=== PATIENT | female | born 1950 | race African-American/Black ===

== ENCOUNTER → 2017-01-01 | Outpatient (CLI) | payer BC ==
[~2017-01-01] MED LIST: CEFT250T OR; GLUC850T OR; INSULANT SC; No Historical Meds; actos OR
--- NOTE | 2017-01-01 09:09 | REPMRS ---
Patient History The patient states she had a clinical breast exam in Patient is postmenopausal. No known family history of cancer. Digital Woman Screen Mammo: January 01, 2017 - Exam #: [id number] Bilateral CC and MLO view(s) were taken. Technologist: Kami Simmons, Technologist Prior study comparison: December 27, 2015, digital woman screen mammo performed at [facility] to [facility]. January 02, 2015, digital woman screen mammo performed at [facility]. December 30, 2013, digital woman screen mammo performed at [facility]. FINDINGS: There are scattered fibroglandular densities. There is a moderate amount of residual fibroglandular tissue which is fairly symmetric. There is no interval development of dominant mass, architectural distortion, or clustered microcalcification typical of malignancy. There has been no change in the appearance of the mammogram from the prior studies. ASSESSMENT: BI-RADS/ACR category 1 mammogram. Negative. Recommendation Routine screening mammogram of both breasts in 1 year (for women over age 40). This mammogram was interpreted with the aid of an FDA-approved computer-aided dectection system. Electronically Signed By: Taiwo Mendoza MD 01/01/17 0908
== END ==
LOC: M WHC 07:35
PROVIDERS: ATTEND Nurse Practitioner Family
DX: Z12.31 Encounter for screening mammogram for malignant neoplasm of breast (principal)

== ENCOUNTER → 2017-01-13 | Outpatient (REF) | payer BC ==
[2017-01-13 12:12] LABS: BASO % 0.2 % (0.0-1.0); EOS # 0.2 K/mm3 (0.0-0.50); LARGE UNSTAINED CELL # 0.1 K/mm3 (0.0-0.4); LARGE UNSTAINED CELL % 2.3 % (0.0-4.0); LYMPH % 33.2 % (24.0-44.0); MEAN CORPUSCULAR HEMOGLOBIN 29.1 pg (27.0-33.0); MEAN CORPUSCULAR VOLUME 90.8 fl (80.0-96.0); MONO # 0.4 K/mm3 (0.0-0.8); MONO % 6.5 % (0.0-5.0); NEUTROPHILS % 54.9 % (36.0-66.0); PLATELET COUNT, AUTOMATED 174 k/mm3 (150-450); WHITE BLOOD COUNT 5.5 K/mm3 (4.0-10.0)
[2017-01-13 12:32] LABS: ALBUMIN 3.8 GM/DL (3.2-5.2); ALBUMIN/GLOBULIN RATIO 0.69 (1.00-1.93); ALKALINE PHOSPHATASE 147 U/L (45-117); ALT/SGPT 24 U/L (12-78); ANION GAP 11 MEQ/L (8-16); AST/SGOT 27 U/L (15-37); BILIRUBIN,TOTAL 0.3 MG/DL (0.2-1.0); BLOOD UREA NITROGEN 11 MG/DL (7-18); CARBON DIOXIDE LEVEL 25 MEQ/L (21-32); CHLORIDE LEVEL 103 MEQ/L (98-107); CHOLESTEROL LEVEL 128 MG/DL (<200); GLOMERULAR FILTRATION RATE > 60.0 (>45); GLUCOSE, FASTING 106 MG/DL (80-110); POTASSIUM SERUM 4.3 MEQ/L (3.5-5.1); SODIUM LEVEL 139 MEQ/L (136-145); TOTAL PROTEIN 9.3 GM/DL (6.4-8.2); TRIGLYCERIDES LEVEL 129 MG/DL (<150)
== END ==
LOC: M SFHCPLAZ 07:11
PROVIDERS: ATTEND Nurse Practitioner Family
DX: D50.9 Iron deficiency anemia, unspecified (principal); E11.9 Type 2 diabetes mellitus without complications

== ENCOUNTER → 2017-05-16 | Outpatient (REF) | payer BC, OTHER | LOC: M SFHCPLAZ 09:51 | PROVIDERS: ATTEND Nurse Practitioner Family | DX: Z11.59 Encounter for screening for other viral diseases (principal) ==

== ENCOUNTER → 2017-05-28 | Outpatient (CLI) | payer OTHER ==
[2017-05-28 14:07] LABS: BASO % 0.6 % (0.0-1.0); EOS # 0.1 K/mm3 (0.0-0.50); EOS % 3.4 % (0.0-3.0); LARGE UNSTAINED CELL # 0.1 K/mm3 (0.0-0.4); LARGE UNSTAINED CELL % 2.9 % (0.0-4.0); LYMPH # 1.7 K/mm3 (1.5-4.5); MEAN CORPUSCULAR HEMOGLOBIN 28.9 pg (27.0-33.0); MEAN CORPUSCULAR HGB CONC 32.2 g/dl (32.0-36.5); MEAN CORPUSCULAR VOLUME 89.7 fl (80.0-96.0); MONO # 0.3 K/mm3 (0.0-0.8); MONO % 7.2 % (0.0-5.0); PLATELET COUNT, AUTOMATED 178 k/mm3 (150-450); RED CELL DISTRIBUTION WIDTH 14.8 % (11.5-14.5); WHITE BLOOD COUNT 4.3 K/mm3 (4.0-10.0)
[2017-05-28 14:30] LABS: ERYTHROCYTE SEDIMENTATION RATE 51 mm/hr (0-30)
== END ==
LOC: M LAB 13:17
PROVIDERS: ATTEND Orthopaedic Surgery Sports Medicine
DX: M25.569 Pain in unspecified knee (principal)

== ENCOUNTER → 2017-06-11 | Outpatient (REF) | payer OTHER ==
[2017-06-11 16:01] LABS: ALBUMIN 3.5 GM/DL (3.2-5.2); ALKALINE PHOSPHATASE 173 U/L (45-117); ALT/SGPT 35 U/L (12-78); ANION GAP 8 MEQ/L (8-16); AST/SGOT 36 U/L (15-37); BILIRUBIN,TOTAL 0.2 MG/DL (0.2-1.0); BLOOD UREA NITROGEN 17 MG/DL (7-18); CALCIUM LEVEL 9.3 MG/DL (8.8-10.2); CARBON DIOXIDE LEVEL 25 MEQ/L (21-32); CHLORIDE LEVEL 103 MEQ/L (98-107); CREATININE FOR GFR 0.77 MG/DL (0.55-1.02); GLOMERULAR FILTRATION RATE > 60.0 (>45); GLUCOSE, FASTING 229 MG/DL (80-110); POTASSIUM SERUM 3.8 MEQ/L (3.5-5.1); SODIUM LEVEL 136 MEQ/L (136-145); TOTAL PROTEIN 8.5 GM/DL (6.4-8.2)
[2017-06-14 08:07] LABS: IgG P18 AB Absent (.); IgG P23 AB Absent (.); IgG P28 AB Absent (.); IgG P30 AB Absent (.); IgG P41 AB Absent (.); IgG P45 AB Absent (.); IgG P58 AB Present (.); IgG P66 AB Absent (.); IgG P93 AB Present (.); IgM P39 AB Absent (.); IgM P41 AB Absent (.)
== END ==
LOC: M SFHCPLAZ 14:22
PROVIDERS: ATTEND Nurse Practitioner Family
DX: R70.0 Elevated erythrocyte sedimentation rate (principal); R79.82 Elevated C-reactive protein (CRP); M25.562 Pain in left knee; E11.9 Type 2 diabetes mellitus without complications; E78.2 Mixed hyperlipidemia; Z79.01 Long term (current) use of anticoagulants
CPT/HCPCS: 80053; 85730; 86038; 86431; 86617; G0463

== ENCOUNTER 2017-06-12 08:43 | Outpatient (RCR) | payer OTHER | END 2017-06-23 | disposition home or self-care (01) | LOC: M PT 08:43 | PROVIDERS: ATTEND Orthopaedic Surgery Sports Medicine | DX: Z51.89 Encounter for other specified aftercare (principal); M25.562 Pain in left knee | CPT/HCPCS: 97161; G8978; G8979 ==

== ENCOUNTER → 2017-07-24 | Outpatient (RCR) | payer OTHER | LOC: M PT 06-30 07:59 | PROVIDERS: ATTEND Orthopaedic Surgery Sports Medicine | DX: Z51.89 Encounter for other specified aftercare (principal); M25.562 Pain in left knee ==

== ENCOUNTER → 2017-07-30 | Outpatient (CLI) | payer OTHER ==
--- NOTE | 2017-07-31 05:47 | ECHO ---
DATE OF PROCEDURE: 07/30/2017 DATE OF : 1950 AGE: 67. REFERRING PROVIDER: Penny Hernandez PATIENT LOCATION: Outpatient REASON FOR THE ECHOCARDIOGRAM: Heart murmur. 2D MEASUREMENTS: IVS: 1.0 cm LV: 4.1 cm LVPW: 1.0 cm LA: 3.2 cm Aorta: 3.0 cm IVC: 1.7 cm DOPPLER MEASUREMENTS: Peak velocity across the aortic valve: 1.3 m/s Peak velocity across the LVOT: 1.3 m/s Mitral E: 0.88 Mitral A: 0.94 Ratio 0.9 2D COMMENTS: 1. Normal left ventricular size, wall thickness and a normal global left ventricular systolic function. Left ventricular systolic ejection fraction is estimated at 65-70%. 2. Normal left atrium. Normal right atrium. 3. The atrial septum appeared to be normal without evidence of defect or shunt. 4. Normal aortic root. 5. No pericardial effusion seen. 6. Mildly calcified aortic valve with normal leaflet excursion. Mildly calcified mitral annulus with normal mitral valve leaflet motion. Normal tricuspid valve and pulmonic valve. 7. The inferior vena cava was normal in size, central venous pressure is most likely normal. DOPPLER: It detects trace to mild mitral regurgitation and mild tricuspid regurgitation. The calculated pulmonary artery systolic pressure was normal. Abnormal relaxation pattern was noted across the mitral valve leaflets as well as the mitral valve annulus consistent with grade 1 left ventricular diastolic function. IMPRESSION: 1. Normal global left ventricular systolic function. There are some features of left ventricular diastolic dysfunction, grade 1. 2. Aortic valve sclerosis without stenosis or aortic regurgitation. 3. Mitral annulus calcification with trace to mild mitral regurgitation. 4. Mild tricuspid regurgitation with a normal calculated pulmonary artery systolic pressure. [facility]
== END ==
LOC: M CARPUL 08:14
PROVIDERS: ATTEND Internal Medicine Rheumatology
DX: R01.1 Cardiac murmur, unspecified (principal)

== ENCOUNTER 2017-07-31 08:46 | Outpatient (RCR) | payer OTHER | END 2017-08-23 | LOC: M PT 08:46 | PROVIDERS: ATTEND Orthopaedic Surgery Sports Medicine | DX: Z51.89 Encounter for other specified aftercare (principal); M25.562 Pain in left knee ==

== ENCOUNTER → 2017-09-16 | Outpatient (REF) | payer OTHER ==
[2017-09-16 12:05] LABS: BASO % 0.2 % (0.0-1.0); EOS # 0.1 10^3/uL (0.0-0.50); EOS % 1.8 % (0.0-3.0); IMMATURE GRANULOCYTE % 0.2 % (0-0); LYMPH % 43.6 % (24.0-44.0); MEAN CORPUSCULAR HEMOGLOBIN 28.3 pg (27.0-33.0); MEAN CORPUSCULAR HGB CONC 32.2 g/dl (32.0-36.5); MEAN CORPUSCULAR VOLUME 87.9 fl (80.0-96.0); MONO # 0.4 10^3/uL (0.0-0.8); MONO % 7.8 % (0.0-5.0); NEUTROPHILS # 2.1 10^3/uL (1.8-7.7); NEUTROPHILS % 46.4 % (36.0-66.0); PLATELET COUNT, AUTOMATED 189 10^3/uL (150-450); RED CELL DISTRIBUTION WIDTH 14.5 % (11.5-14.5); WHITE BLOOD COUNT 4.5 10^3/uL (4.0-10.0)
[2017-09-16 12:22] LABS: ALBUMIN 3.8 GM/DL (3.2-5.2); ALBUMIN/GLOBULIN RATIO 0.81 (1.00-1.93); ALKALINE PHOSPHATASE 150 U/L (45-117); ALT/SGPT 29 U/L (12-78); ANION GAP 10 MEQ/L (8-16); AST/SGOT 32 U/L (15-37); BILIRUBIN,TOTAL 0.3 MG/DL (0.2-1.0); BLOOD UREA NITROGEN 19 MG/DL (7-18); CALCIUM LEVEL 9.2 MG/DL (8.8-10.2); CARBON DIOXIDE LEVEL 25 MEQ/L (21-32); CHLORIDE LEVEL 103 MEQ/L (98-107); CHOLESTEROL LEVEL 144 MG/DL (<200); CREATININE FOR GFR 0.84 MG/DL (0.55-1.02); GLOMERULAR FILTRATION RATE > 60.0 (>45); GLUCOSE, FASTING 115 MG/DL (80-110); SODIUM LEVEL 138 MEQ/L (136-145); TOTAL PROTEIN 8.5 GM/DL (6.4-8.2); TRIGLYCERIDES LEVEL 120 MG/DL (<150)
== END ==
LOC: M SFHCPLAZ 09:57
PROVIDERS: ATTEND Nurse Practitioner Family
DX: E11.9 Type 2 diabetes mellitus without complications (principal); R70.0 Elevated erythrocyte sedimentation rate

== ENCOUNTER → 2018-01-21 | Outpatient (REF) | payer OTHER ==
[2018-01-21 13:14] LABS: ALBUMIN 3.8 GM/DL (3.2-5.2); ALBUMIN/GLOBULIN RATIO 0.75 (1.00-1.93); ALKALINE PHOSPHATASE 143 U/L (45-117); ALT/SGPT 29 U/L (12-78); ANION GAP 7 MEQ/L (8-16); AST/SGOT 35 U/L (7-37); BILIRUBIN,TOTAL 0.4 MG/DL (0.2-1.0); BLOOD UREA NITROGEN 19 MG/DL (7-18); CALCIUM LEVEL 9.3 MG/DL (8.8-10.2); CARBON DIOXIDE LEVEL 28 MEQ/L (21-32); CHLORIDE LEVEL 104 MEQ/L (98-107); CHOLESTEROL LEVEL 142 MG/DL (<200); CHOLESTEROL RISK RATIO 2.535 (<5); GLOMERULAR FILTRATION RATE > 60.0 (>45); GLUCOSE, FASTING 108 MG/DL (70-100); HDL CHOLESTEROL 56 MG/DL (>40); LDL CHOLESTEROL 62.6 MG/DL (<100); NON-HDL-C 86 MG/DL; POTASSIUM SERUM 4.3 MEQ/L (3.5-5.1); SODIUM LEVEL 139 MEQ/L (136-145); TOTAL PROTEIN 8.9 GM/DL (6.4-8.2); TRIGLYCERIDES LEVEL 117 MG/DL (<150)
[2018-01-21 13:21] LABS: ESTIMATED AVERAGE GLUCOSE 151 MG/DL (60-110); HEMOGLOBIN A1c 6.9 %
== END ==
LOC: M SFHCPLAZ 08:33
DX: E78.2 Mixed hyperlipidemia (principal); E11.9 Type 2 diabetes mellitus without complications
CPT/HCPCS: 80053

== ENCOUNTER → 2018-01-28 | Outpatient (CLI) | payer OTHER | LOC: M WHC 11:08 | DX: Z12.31 Encounter for screening mammogram for malignant neoplasm of breast (principal) | CPT/HCPCS: 77067 ==

== ENCOUNTER → 2018-06-05 | Outpatient (CLI) | payer OTHER | LOC: M WHC 14:38 | DX: Z13.820 Encounter for screening for osteoporosis (principal); M85.851 Other specified disorders of bone density and structure, right thigh; M85.852 Other specified disorders of bone density and structure, left thigh; M85.88 Other specified disorders of bone density and structure, other site | CPT/HCPCS: 77080 ==

== ENCOUNTER → 2018-08-06 | Outpatient (REF) | payer OTHER ==
[2018-08-06 15:40] LABS: ESTIMATED AVERAGE GLUCOSE 137 MG/DL (60-110); HEMOGLOBIN A1c 6.4 %
[2018-08-06 15:59] LABS: CREATININE, URINE 45.2 MG/DL; MALB URINE SIEMENS 7.2 MG/L
[2018-08-06 16:04] LABS: MAU/CREAT RATIO 15.9 MCG/MG (0.0-30.0)
== END ==
LOC: M SFHCPLAZ 09:05
DX: Z01.818 Encounter for other preprocedural examination (principal); M17.12 Unilateral primary osteoarthritis, left knee; D64.9 Anemia, unspecified

== ENCOUNTER → 2018-08-06 | Outpatient (REF) | payer OTHER ==
[2018-08-06 15:17] LABS: BASO % 0.3 % (0.0-1.0); EOS # 0.1 10^3/uL (0.0-0.50); EOS % 1.3 % (0.0-3.0); HEMOGLOBIN 12.1 g/dl (12.0-15.5); IMMATURE GRANULOCYTE % 0.5 % (0-3.0); LYMPH # 1.3 10^3/uL (1.5-4.5); LYMPH % 31.5 % (24.0-44.0); MEAN CORPUSCULAR HEMOGLOBIN 27.7 pg (27.0-33.0); MEAN CORPUSCULAR VOLUME 89.2 fl (80.0-96.0); MONO # 0.4 10^3/uL (0.0-0.8); MONO % 8.8 % (0.0-5.0); NEUTROPHILS # 2.3 10^3/uL (1.8-7.7); NEUTROPHILS % 57.6 % (36.0-66.0); PLATELET COUNT, AUTOMATED 211 10^3/uL (150-450); RED BLOOD COUNT 4.37 10^6/uL (4.00-5.40); RED CELL DISTRIBUTION WIDTH 13.9 % (11.5-14.5)
[2018-08-06 15:55] LABS: ESTIMATED AVERAGE GLUCOSE 137 MG/DL (60-110); HEMOGLOBIN A1c 6.4 %
[2018-08-06 15:56] LABS: FERRITIN 40 NG/ML (8-252); IRON (FE) 71 UG/DL (50-170); TOTAL IRON BINDING CAPACITY 400 UG/DL (250-450)
[2018-08-06 15:56] LABS: ALBUMIN 3.7 GM/DL (3.2-5.2)
[2018-08-06 21:00] LABS: PERCENT SATURATION 17.8 % (13.2-45.0)
== END ==
LOC: M LABDRAWP 12:57
DX: Z01.818 Encounter for other preprocedural examination (principal); D64.9 Anemia, unspecified; M17.12 Unilateral primary osteoarthritis, left knee; E11.9 Type 2 diabetes mellitus without complications
CPT/HCPCS: 82040

== ENCOUNTER → 2018-08-10 | Outpatient (CLI) | payer OTHER ==
[2018-08-10 16:17] LABS: BASO % 0.2 % (0.0-1.0); EOS # 0.1 10^3/uL (0.0-0.50); HEMATOCRIT 39.8 % (36.0-47.0); HEMOGLOBIN 12.8 g/dl (12.0-15.5); IMMATURE GRANULOCYTE % 0.2 % (0-3.0); LYMPH # 1.9 10^3/uL (1.5-4.5); LYMPH % 37.5 % (24.0-44.0); MEAN CORPUSCULAR HEMOGLOBIN 27.8 pg (27.0-33.0); MEAN CORPUSCULAR HGB CONC 32.2 g/dl (32.0-36.5); MEAN CORPUSCULAR VOLUME 86.5 fl (80.0-96.0); MONO # 0.6 10^3/uL (0.0-0.8); MONO % 11.5 % (0.0-5.0); NEUTROPHILS # 2.6 10^3/uL (1.8-7.7); NEUTROPHILS % 49.6 % (36.0-66.0); PLATELET COUNT, AUTOMATED 205 10^3/uL (150-450); RED CELL DISTRIBUTION WIDTH 13.9 % (11.5-14.5); WHITE BLOOD COUNT 5.2 10^3/uL (4.0-10.0)
[2018-08-10 16:35] LABS: ESTIMATED AVERAGE GLUCOSE 131 MG/DL (60-110); HEMOGLOBIN A1c 6.2 %
[2018-08-10 16:52] LABS: FERRITIN 47 NG/ML (8-252); IRON (FE) 73 UG/DL (50-170); PERCENT SATURATION 18.1 % (13.2-45.0); TOTAL IRON BINDING CAPACITY 403 UG/DL (250-450)
[2018-08-10 16:52] LABS: ALBUMIN 3.9 GM/DL (3.2-5.2)
== END ==
LOC: M LAB 15:55
DX: D64.9 Anemia, unspecified (principal); Z79.899 Other long term (current) drug therapy
CPT/HCPCS: 82040

== ENCOUNTER 2018-08-12 13:20 | Outpatient (RCR) | payer OTHER | END 2018-08-23 | LOC: M PT 13:20 | DX: M17.12 Unilateral primary osteoarthritis, left knee (principal) | CPT/HCPCS: 97110 ==

== ENCOUNTER → 2018-08-15 | Outpatient (CLI) | payer OTHER | LOC: M RAD 10:35 | DX: Z02.1 Encounter for pre-employment examination (principal) | CPT/HCPCS: 71046 ==

== ENCOUNTER 2018-09-02 12:44 | Outpatient (RCR) | payer OTHER | END 2018-09-23 | LOC: M PT 12:44 | DX: Z47.1 Aftercare following joint replacement surgery (principal); Z96.651 Presence of right artificial knee joint | CPT/HCPCS: 97110 ==

== ENCOUNTER → 2018-09-10 | Outpatient (REF) | payer OTHER | LOC: M SFHCPLAZ 17:01 | DX: N30.00 Acute cystitis without hematuria (principal); M19.90 Unspecified osteoarthritis, unspecified site; Z23 Encounter for immunization | CPT/HCPCS: 87086 ==

== ENCOUNTER 2018-09-25 12:34 | Outpatient (RCR) | payer OTHER | END 2018-10-23 | LOC: M PT 12:34 | DX: Z96.652 Presence of left artificial knee joint (principal) | CPT/HCPCS: 97110 ==

== ENCOUNTER 2018-10-30 11:53 | Outpatient (RCR) | payer OTHER | END 2018-11-23 | LOC: M PT 11:53 | PROVIDERS: ATTEND Orthopaedic Surgery Sports Medicine | DX: M17.12 Unilateral primary osteoarthritis, left knee (principal); Z96.652 Presence of left artificial knee joint | CPT/HCPCS: 97164; G8978; G8979 ==

== ENCOUNTER 2018-12-01 06:59 | Emergency (ER) | payer OTHER, MEDICARE ==
[~2018-12-01] VITALS: Ht 162.6 cm; Wt 80.9 kg
[2018-12-01] MEDS ORDERED: ACET30TAB PO (07:04)
[2018-12-01] MEDS ORDERED: ATOR80TA59 PO (07:04)
[2018-12-01 08:16] VITALS: BP 165/80
--- NOTE | 2018-12-01 08:23 | REP ---
Left knee series: Five views. History: Trauma. Anterior pain. Comparison left knee radiographs are from December 18, 2015. Findings: In the interval since the last radiographic study, the patient has undergone left knee arthroplasty. Components are well aligned with respect to each other and their [place] bones. There is no evidence of fracture. There is fullness in the region of the subpatellar bursa and I cannot exclude an effusion. Some heterotopic bone formation is seen about the joint. There is diffuse osteopenia. Impression: No acute fracture. Question joint effusion. Status post left knee arthroplasty. Electronically Signed by Rohit Mendoza MD 12/01/2018 09:15 A
== END 2018-12-01 08:28 | disposition home or self-care (01) ==
LOC: M ED 06:59
DX: S80.02XA Contusion of left knee, initial encounter (principal); W00.0XXA Fall on same level due to ice and snow, initial encounter; Y92.89 Other specified places as the place of occurrence of the external cause; Z96.652 Presence of left artificial knee joint; E11.9 Type 2 diabetes mellitus without complications; M19.90 Unspecified osteoarthritis, unspecified site; Z79.899 Other long term (current) drug therapy; Z79.84 Long term (current) use of oral hypoglycemic drugs

== ENCOUNTER → 2019-01-29 | Outpatient (CLI) | payer MEDICARE ==
[~2019-01-29] MED LIST changes: +ACET30TAB PO; +ATOR80TA59 PO
--- NOTE | 2019-01-29 15:51 | REPMRS ---
Patient History The patient states she has not had a clinical breast exam in over a year. Patient is postmenopausal. No known family history of cancer. No Hormone Replacement Therapy 3D TOMOSYNTHESIS WAS PERFORMED. Digital Woman Screen Mammo: January 29, 2019 - Exam #: [id number] Bilateral CC and MLO view(s) were taken. Technologist: Sonali Melgar, Technologist Prior study comparison: January 28, 2018, digital woman screen mammo performed at [facility]. January 01, 2017, digital woman screen mammo performed at [facility] to [facility]. FINDINGS: The breast tissue is heterogeneously dense. This may lower the sensitivity of mammography. There has been no change in the appearance of the mammogram from the prior studies. There is a moderate amount of residual fibroglandular tissue which is fairly symmetric. There is no interval development of dominant mass, areas of architectural distortion, or clustered microcalcification typical of malignancy. Assessment: BI-RADS/ACR category 1 mammogram. Negative Mammogram. Recommendation Routine screening mammogram in 1 year (for women over age 40). This mammogram was interpreted with the aid of an FDA-approved computer-aided dectection system. Electronically Signed By: Ortega Ferrara MD 01/29/19 [id number]
== END ==
LOC: M WHC 14:23
PROVIDERS: ATTEND Family Medicine
DX: Z12.31 Encounter for screening mammogram for malignant neoplasm of breast (principal); Z78.0 Asymptomatic menopausal state

== ENCOUNTER → 2019-02-15 | Outpatient (REF) | payer MEDICARE ==
[2019-02-15 10:37] LABS: CHOLESTEROL RISK RATIO 2.686 (<5)
[2019-02-15 11:02] LABS: RUBELLA IgG QUALITATIVE IMMUNE (IMMUNE)
[2019-02-16 08:50] LABS: MUMPS VIRUS IgG ANTIBODY >300.0 AU/mL (Immune >10.9); RUBEOLA IgG ANTIBODY >300.0 AU/mL (Immune >29.9)
== END ==
LOC: M SFHCPLAZ 08:44
PROVIDERS: ATTEND Family Medicine
DX: Z01.84 Encounter for antibody response examination (principal); E11.9 Type 2 diabetes mellitus without complications; E78.2 Mixed hyperlipidemia

== ENCOUNTER → 2019-07-15 | Outpatient (CLI) | payer MEDICARE ==
[~2019-07-15] MED LIST changes: +ACET-716 PO; -ACET30TAB PO
--- NOTE | 2019-07-15 13:19 | REP ---
REASON: TB exposure. COMPARISON:08/15/2018. FINDINGS: The superior mediastinal structures are midline. The cardiac silhouette is unremarkable in size, shape, and position. The diaphragmatic surfaces of the lungs are regular, and the costophrenic angles are clear. The pulmonary simon are clear. The imaged osseous structures are intact. IMPRESSION: There is no acute cardiopulmonary disease. If clinical suspicion is high, CT is more sensitive. Electronically Signed by Peter Salgado DO 07/15/2019 01:40 P
== END ==
LOC: M RAD 11:42
PROVIDERS: ATTEND Family Medicine
DX: Z20.1 Contact with and (suspected) exposure to tuberculosis (principal)

== ENCOUNTER → 2019-08-11 | Outpatient (CLI) | payer MEDICARE ==
[2019-08-11 13:22] LABS: BASO % 0.2 % (0.0-1.0); EOS % 0.3 % (0.0-3.0); HEMOGLOBIN 12.7 g/dl (12.0-15.5); LYMPH # 1.8 10^3/uL (1.5-5.0); LYMPH % 27.5 % (24.0-44.0); MEAN CORPUSCULAR HEMOGLOBIN 28.3 pg (27.0-33.0); MEAN CORPUSCULAR HGB CONC 31.8 g/dl (32.0-36.5); MEAN CORPUSCULAR VOLUME 89.1 fl (80.0-96.0); MONO # 0.4 10^3/uL (0.0-0.8); MONO % 6.2 % (0.0-5.0); NEUTROPHILS # 4.3 10^3/uL (1.5-8.5); PLATELET COUNT, AUTOMATED 247 10^3/uL (150-450); RED BLOOD COUNT 4.49 10^6/uL (4.00-5.40); WHITE BLOOD COUNT 6.7 10^3/uL (4.0-10.0)
[2019-08-11 13:58] LABS: ALBUMIN 3.7 GM/DL (3.2-5.2); ALT/SGPT 32 U/L (12-78); BILIRUBIN,TOTAL 0.2 MG/DL (0.2-1.0); BLOOD UREA NITROGEN 22 MG/DL (7-18); C REACTIVE PROTEIN QUANTITATIV < 0.30 MG/DL (0.00-0.30); CALCIUM LEVEL 9.3 MG/DL (8.8-10.2); CARBON DIOXIDE LEVEL 26 MEQ/L (21-32); CHLORIDE LEVEL 107 MEQ/L (98-107); COMPLEMENT C3 138 MG/DL (90-180); COMPLEMENT C4 9 MG/DL (10-40); CREATININE FOR GFR 0.73 MG/DL (0.55-1.30); GLOMERULAR FILTRATION RATE > 60.0 (>45); GLUCOSE, FASTING 122 MG/DL (70-100); POTASSIUM SERUM 4.5 MEQ/L (3.5-5.1); SODIUM LEVEL 139 MEQ/L (136-145); TOTAL PROTEIN 8.5 GM/DL (6.4-8.2); TOTAL PROTEIN,RANDOM URINE 22.1 MG/DL (0.0-12.0); URIC ACID 4.4 MG/DL (2.6-6.0)
[2019-08-11 14:15] LABS: ERYTHROCYTE SEDIMENTATION RATE 41 mm/hr (0-30)
--- NOTE | 2019-08-12 02:25 | REP ---
Clinical: Pain. Technique: AP, lateral, bilateral oblique views of the right and left hand. Findings: Right hand demonstrates mild/early moderate arthritic changes involving the first metacarpophalangeal and diffuse interphalangeal joints with subtle subchondral sclerosis, joint space narrowing, and very early marginal spurring. Small subchondral cystic changes at the head of the second and third middle phalanges also noted. Associated swelling at the proximal interphalangeal joints also suggested. No acute fracture or dislocation. Left hand demonstrates early moderate arthritic changes involving the first metacarpophalangeal and diffuse interphalangeal joints including subchondral sclerosis, mild joint space narrowing, and marginal spurring. Subtle early subchondral cystic changes at the head of the proximal and middle second through fourth middle phalanges is also suggested along with mild swelling at the proximal interphalangeal joints. Early cortical irregularity and cystic changes to the lunate bone at the wrist noted as well. No acute fracture or dislocation. Impression: Moderate arthritic changes. Electronically Signed by Micheal Walden MD 08/12/2019 02:17 A
[2019-08-13 14:26] LABS: HEPATITIS C QUANTITATION HCV Not Detected IU/mL (.)
== END ==
LOC: M LAB 11:35
PROVIDERS: ATTEND Internal Medicine Rheumatology
DX: M35.01 Sjogren syndrome with keratoconjunctivitis (principal); M06.00 Rheumatoid arthritis without rheumatoid factor, unspecified site; Z86.19 Personal history of other infectious and parasitic diseases

== ENCOUNTER → 2019-08-25 | Outpatient (REF) | payer MEDICARE | LOC: M SFHCPLAZ 16:51 | PROVIDERS: ATTEND Dermatology | DX: R21 Rash and other nonspecific skin eruption (principal) ==

== ENCOUNTER → 2019-10-18 | Outpatient (REF) | payer MEDICARE ==
[2019-10-18 16:36] LABS: MALB URINE SIEMENS 16.3 MG/L; MAU/CREAT RATIO 12.8 MCG/MG (0.0-30.0)
[2019-10-18 16:37] LABS: HEMOGLOBIN A1c 7.6 %
== END ==
LOC: M SFHCPLAZ 13:38
PROVIDERS: ATTEND Family Medicine
DX: E11.9 Type 2 diabetes mellitus without complications (principal)

== ENCOUNTER → 2020-02-03 | Outpatient (CLI) | payer MEDICARE ==
--- NOTE | 2020-02-03 10:06 | REPMRS ---
Patient History The patient states she has not had a clinical breast exam in over a year. No known family history of cancer. No Hormone Replacement Therapy Digital Woman Screen Mammo: February 03, 2020 - Exam #: [id number] Bilateral CC and MLO view(s) were taken. Technologist: Nena Argueta, Technologist Prior study comparison: January 29, 2019, bilateral digital woman screen mammo performed at [facility]. January 28, 2018, digital woman screen mammo performed at [facility]. January 01, 2017, digital woman screen mammo performed at [facility]. FINDINGS: The breast tissue is heterogeneously dense. This may lower the sensitivity of mammography. There is a moderate amount of heterogeneously dense fibroglandular tissue which is fairly symmetric. There is no interval development of dominant mass, architectural distortion, or grouped microcalcification typical of malignancy. There has been no change in the appearance of the mammogram from the prior studies. 3-D tomosynthesis shows no additional findings. Assessment: BI-RADS/ACR category 1 mammogram. Negative Mammogram. Recommendation Routine screening mammogram of both breasts in 1 year (for women over age 40). This patient's Lifetime Breast Cancer RIsk is estimated at 4.4 %. This mammogram was interpreted with the aid of an FDA-approved computer-aided dectection system. Electronically Signed By: Taiwo Mendoza MD 02/03/20 [id number]
== END ==
LOC: M WHC 08:06
PROVIDERS: ATTEND Family Medicine
DX: Z12.31 Encounter for screening mammogram for malignant neoplasm of breast (principal)

== ENCOUNTER → 2020-03-15 | Outpatient (REF) | payer MEDICARE ==
[2020-03-15 11:53] LABS: BASO % 0.2 % (0.0-1.0); EOS # 0.1 10^3/uL (0.0-0.5); HEMATOCRIT 38.8 % (36.0-47.0); HEMOGLOBIN 12.3 g/dl (12.0-15.5); LYMPH # 1.4 10^3/uL (1.5-5.0); LYMPH % 34.9 % (24.0-44.0); MEAN CORPUSCULAR HEMOGLOBIN 28.2 pg (27.0-33.0); MEAN CORPUSCULAR HGB CONC 31.7 g/dl (32.0-36.5); MONO # 0.3 10^3/uL (0.0-0.8); MONO % 7.9 % (0.0-5.0); NEUTROPHILS # 2.2 10^3/uL (1.5-8.5); NEUTROPHILS % 54.8 % (36.0-66.0); PLATELET COUNT, AUTOMATED 219 10^3/uL (150-450); RED BLOOD COUNT 4.36 10^6/uL (4.00-5.40)
[2020-03-15 12:04] LABS: CREATININE,RANDOM URINE < 13.0 MG/DL
[2020-03-15 12:08] LABS: BLOOD UREA NITROGEN 13 MG/DL (7-18); CALCIUM LEVEL 9.5 MG/DL (8.8-10.2); CARBON DIOXIDE LEVEL 29 MEQ/L (21-32); CHLORIDE LEVEL 103 MEQ/L (98-107); CHOLESTEROL LEVEL 149 MG/DL (<200); CHOLESTEROL RISK RATIO 2.759 (<5); CREATININE FOR GFR 0.67 MG/DL (0.55-1.30); GLOMERULAR FILTRATION RATE > 60.0 (>45); GLUCOSE, FASTING 135 MG/DL (70-100); HDL CHOLESTEROL 54 MG/DL (>40); LDL CHOLESTEROL 71 MG/DL (<100); NON-HDL-C 95 MG/DL; SODIUM LEVEL 137 MEQ/L (136-145); TRIGLYCERIDES LEVEL 120 MG/DL (<150)
[2020-03-15 12:32] LABS: ERYTHROCYTE SEDIMENTATION RATE 46 mm/hr (0-30)
[2020-03-15 12:40] LABS: ALBUMIN 3.8 GM/DL (3.2-5.2); ALT/SGPT 34 U/L (12-78); BILIRUBIN,TOTAL 0.3 MG/DL (0.2-1.0); BLOOD UREA NITROGEN 13 MG/DL (7-18); C REACTIVE PROTEIN QUANTITATIV < 0.30 MG/DL (0.00-0.30); CALCIUM LEVEL 9.5 MG/DL (8.8-10.2); CARBON DIOXIDE LEVEL 29 MEQ/L (21-32); CHLORIDE LEVEL 104 MEQ/L (98-107); COMPLEMENT C3 146 MG/DL (90-180); COMPLEMENT C4 14 MG/DL (10-40); CREATININE FOR GFR 0.71 MG/DL (0.55-1.30); FREE T4 0.97 NG/DL (0.76-1.46); GLOMERULAR FILTRATION RATE > 60.0 (>45); GLUCOSE, FASTING 132 MG/DL (70-100); RHEUMATOID FACTOR QUANT < 10.0 IU/ML (<15.0); SODIUM LEVEL 138 MEQ/L (136-145); TOTAL PROTEIN 9.1 GM/DL (6.4-8.2)
[2020-03-15 12:58] LABS: HEMOGLOBIN A1c 7.5 %
== END ==
LOC: M SFHCPLAZ 09:26
DX: E11.9 Type 2 diabetes mellitus without complications (principal); E78.2 Mixed hyperlipidemia

== ENCOUNTER → 2020-04-18 | Outpatient (REF) | payer MEDICARE | LOC: M WUC 15:50 | PROVIDERS: ATTEND Nurse Practitioner Family | DX: R30.0 Dysuria (principal) ==

== ENCOUNTER → 2020-06-19 | Outpatient (REF) | payer MEDICARE ==
[2020-08-02 13:57] LABS: HEMOGLOBIN A1c 7.1 %
== END ==
LOC: M PLALAB 09:58
PROVIDERS: ATTEND Family Medicine
DX: Z11.1 Encounter for screening for respiratory tuberculosis (principal); E11.9 Type 2 diabetes mellitus without complications

== ENCOUNTER → 2020-06-22 | Outpatient (CLI) | payer MEDICARE ==
--- NOTE | 2020-08-11 15:39 | REP ---
CHEST X-RAY: 2-VIEWS HISTORY: Screening exam for TB. COMPARISON: None. FINDINGS: The lungs are symmetrically aerated and clear. The pleural angles are sharp. Heart size is normal. Pulmonary vasculature is not increased. The thoracic aorta is somewhat tortuous and calcific. There are mild degenerative disc changes in the thoracic spine. IMPRESSION: No active cardiopulmonary disease. MTDD
== END ==
LOC: M RAD 16:20
PROVIDERS: ATTEND Family Medicine
DX: Z11.1 Encounter for screening for respiratory tuberculosis (principal)

== ENCOUNTER → 2020-11-14 | Outpatient (CLI) | payer SELFPAY | LOC: M LABSMTC 10:04 | PROVIDERS: ATTEND Pediatrics | DX: Z20.828 Contact with and (suspected) exposure to other viral communicable diseases (principal) ==

== ENCOUNTER → 2020-12-22 | Outpatient (REF) | payer MEDICARE | LOC: M LAB REF 13:55 | PROVIDERS: ATTEND Podiatrist Foot & Ankle Surgery | DX: L81.4 Other melanin hyperpigmentation (principal) ==

== ENCOUNTER → 2021-01-29 | Outpatient (REF) | payer MEDICARE ==
[2021-01-29 18:05] LABS: BASO % 0.2 % (0.0-1.0); EOS % 0.9 % (0.0-3.0); HEMATOCRIT 38.4 % (36.0-47.0); HEMOGLOBIN 11.8 g/dl (12.0-15.5); LYMPH # 2.1 10^3/uL (1.5-5.0); LYMPH % 45.1 % (24.0-44.0); MEAN CORPUSCULAR HEMOGLOBIN 27.4 pg (27.0-33.0); MEAN CORPUSCULAR HGB CONC 30.7 g/dl (32.0-36.5); MEAN CORPUSCULAR VOLUME 89.1 fl (80.0-96.0); MONO # 0.5 10^3/uL (0.0-0.8); MONO % 10.8 % (2.0-8.0); NEUTROPHILS % 42.8 % (36.0-66.0); PLATELET COUNT, AUTOMATED 224 10^3/uL (150-450); RED BLOOD COUNT 4.31 10^6/uL (4.00-5.40); WHITE BLOOD COUNT 4.6 10^3/uL (4.0-10.0)
[2021-01-29 18:29] LABS: ALT/SGPT 27 U/L (12-78); BILIRUBIN,TOTAL 0.3 MG/DL (0.2-1.0); BLOOD UREA NITROGEN 16 MG/DL (7-18); CALCIUM LEVEL 9.7 MG/DL (8.8-10.2); CARBON DIOXIDE LEVEL 30 MEQ/L (21-32); CHLORIDE LEVEL 102 MEQ/L (98-107); COMPLEMENT C3 147 MG/DL (90-180); COMPLEMENT C4 14 MG/DL (10-40); CREATININE FOR GFR 0.67 MG/DL (0.55-1.30); GLOMERULAR FILTRATION RATE > 60.0 (>45); GLUCOSE, FASTING 85 MG/DL (70-100); SODIUM LEVEL 135 MEQ/L (136-145); TOTAL PROTEIN 9.3 GM/DL (6.4-8.2)
[2021-01-29 19:11] LABS: ERYTHROCYTE SEDIMENTATION RATE 42 mm/hr (0-30)
== END ==
LOC: M SFHCRHEU 15:34
PROVIDERS: ATTEND Internal Medicine
DX: M35.01 Sjogren syndrome with keratoconjunctivitis (principal)

== ENCOUNTER → 2021-02-05 | Outpatient (CLI) | payer MEDICARE ==
--- NOTE | 2021-02-05 10:40 | REPMRS ---
Patient History The patient states she has not had a clinical breast exam in over a year. No known family history of cancer. No Hormone Replacement Therapy Digital Woman Screen Mammo: February 05, 2021 - Exam #: [id number] Bilateral CC and MLO view(s) were taken. Technologist: RT Tatum Prior study comparison: February 03, 2020, bilateral digital woman screen mammo performed at [facility]. January 29, 2019, bilateral digital woman screen mammo performed at [facility]. January 28, 2018, digital woman screen mammo performed at [facility]. FINDINGS: There are scattered fibroglandular densities. The [place] volumetric breast density category is: B. There is a moderate amount of residual fibroglandular tissue which is fairly symmetric. There is no interval development of dominant mass, architectural distortion, or grouped microcalcification typical of malignancy. There has been no change in the appearance of the mammogram from the prior studies. 3-D tomosynthesis shows no additional findings. Assessment: BI-RADS/ACR category 1 mammogram. Negative Mammogram. Recommendation Routine screening mammogram of both breasts in 1 year (for women over age 40). This patient's [facility] Lifetime Breast Cancer RIsk is estimated at 4.1 %. This mammogram was interpreted with the aid of an FDA-approved computer-aided dectection system. Electronically Signed By: Taiwo Mendoza MD 02/05/21 [id number]
== END ==
LOC: M WHC 09:01
PROVIDERS: ATTEND Family Medicine
DX: Z12.31 Encounter for screening mammogram for malignant neoplasm of breast (principal)

== ENCOUNTER → 2021-02-05 | Outpatient (REF) | payer MEDICARE ==
[2021-02-05 10:54] LABS: ALT/SGPT 30 U/L (12-78); BILIRUBIN,TOTAL 0.2 MG/DL (0.2-1.0); BLOOD UREA NITROGEN 25 MG/DL (7-18); CALCIUM LEVEL 9.2 MG/DL (8.8-10.2); CARBON DIOXIDE LEVEL 28 MEQ/L (21-32); CHLORIDE LEVEL 103 MEQ/L (98-107); CHOLESTEROL LEVEL 109 MG/DL (<200); GLOMERULAR FILTRATION RATE > 60.0 (>45); GLUCOSE, FASTING 96 MG/DL (70-100); HDL CHOLESTEROL 50 MG/DL (>40); LDL CHOLESTEROL 41 MG/DL (<100); NON-HDL-C 59 MG/DL; POTASSIUM SERUM 5.1 MEQ/L (3.5-5.1); SODIUM LEVEL 135 MEQ/L (136-145); TOTAL PROTEIN 9.1 GM/DL (6.4-8.2); TRIGLYCERIDES LEVEL 91 MG/DL (<150)
[2021-02-05 11:00] LABS: MALB URINE SIEMENS 19.5 MG/L; MAU/CREAT RATIO 13.6 MCG/MG (0.0-30.0)
[2021-02-05 11:10] LABS: HEMOGLOBIN A1c 6.4 %
== END ==
LOC: M PLALAB 08:37
PROVIDERS: ATTEND Family Medicine
DX: E11.9 Type 2 diabetes mellitus without complications (principal); E78.2 Mixed hyperlipidemia

== ENCOUNTER → 2021-05-02 | Outpatient (REF) | payer MEDICARE | LOC: M SFHCPLAZ 11:18 | PROVIDERS: ATTEND Family Medicine | DX: M06.09 Rheumatoid arthritis without rheumatoid factor, multiple sites (principal) ==

== ENCOUNTER 2021-06-08 12:28 | Emergency (ER) | payer MEDICARE ==
[~2021-06-08] VITALS: Ht 157.5 cm; Wt 75.0 kg
[2021-06-08 12:28] VITALS: BP 128/65
[2021-06-08] MEDS ORDERED: LISI2.5T2 PO (12:35)
[2021-06-08] MEDS ORDERED: ACET1TAB16 PO (12:35)
[2021-06-08] MEDS ORDERED: METF10004 PO (12:35)
--- NOTE | 2021-06-08 13:48 | REP ---
INDICATION: crushed in car door. COMPARISON: Comparison radiographs of the right hand are from August 11, 2019.. TECHNIQUE: Four views of the right hand. FINDINGS: Four views of the right hand demonstrate cortical irregularity at the base of the 1st metacarpal consistent with a nondisplaced fracture.. No other fracture is seen. There is subcortical cyst formation in the lunate bone and there is diffuse osteopenia.. No opaque foreign body noted. IMPRESSION: There is evidence of a nondisplaced fracture in the proximal end of the 1st metacarpal. This should be correlated with area of tenderness and swelling. No other fracture seen.. <Electronically signed by Taiwo Mendoza > 06/08/21 0785
[2021-06-08] MEDS ORDERED: CEPH500C PO (15:29)
[2021-06-08] MEDS ORDERED: BOOSTRIX/ADACEL VACCINE (DIPHTH/PERTUSS/ACELL/TETANUS) 0.5ML SYR IM ONE (15:30)
== END 2021-06-08 15:59 | disposition home or self-care (01) ==
LOC: M ED 12:28
DX: S60.011A Contusion of right thumb without damage to nail, initial encounter (principal); S61.011A Laceration without foreign body of right thumb without damage to nail, initial encounter; W23.1XXA Caught, crushed, jammed, or pinched between stationary objects, initial encounter; Y92.9 Unspecified place or not applicable; Y93.9 Activity, unspecified; Y99.8 Other external cause status

== ENCOUNTER 2021-07-11 16:57 | Emergency (ER) | payer MEDICARE ==
[~2021-07-11] VITALS: Ht 160 cm; Wt 76.8 kg
[~2021-07-11 16:57] MED LIST changes: +ACET1TAB16 PO; +CEPH500C PO; +LISI2.5T9 PO; +METF10004 PO
[2021-07-11] MEDS ORDERED: SULF500T2 (17:13)
[2021-07-11] MEDS ORDERED: BACT800T5 PO (19:54)
[2021-07-11] MEDS ORDERED: BACTRIM 160MG/800MG DS TAB PO ONE (19:55)
[2021-07-11 20:18] VITALS: BP 150/62
== END 2021-07-11 20:11 | disposition home or self-care (01) ==
LOC: M ED 16:57 → EEVIPCON 16:57 → M ED 20:11
DX: L02.214 Cutaneous abscess of groin (principal); I10 Essential (primary) hypertension; F17.200 Nicotine dependence, unspecified, uncomplicated

== ENCOUNTER → 2021-09-25 | Outpatient (CLI) | payer MEDICARE ==
[~2021-09-25] MED LIST changes: +BACT800T5 PO; +SULF500T2
[2021-09-25 10:47] LABS: HEMOGLOBIN A1c 6.5 %
== END ==
LOC: M PLALAB 07:59
PROVIDERS: ATTEND Family Medicine
DX: E11.9 Type 2 diabetes mellitus without complications (principal)

== ENCOUNTER → 2021-10-25 | Outpatient (CLI) | payer MEDICARE ==
--- NOTE | 2021-10-28 14:34 | ECHO ---
ECHOCARDIOGRAM DATE OF PROCEDURE: 10/25/2021 Age: 71 Gender: Female Height: 160 cm Weight: 76 kg REFERRING PROVIDER: Real Ceja M.D. PATIENT LOCATION: Outpatient. REASON FOR THE TESTING: Heart murmur. MEASUREMENTS: 2D Measurements: IVS 1.3 cm LV 3.6 cm LVPW 0.91 cm LA 3.5 cm Aorta 3.3 cm IVC 1.2 cm Doppler Measurements: Peak velocity across the aortic valve 1.1 m/sec Peak velocity across the LVOT 1.2 m/sec Mitral E 1.1 Mitral A 1.1 with a ratio of 1.0 Maximum tricuspid valve velocity 2.6 m/sec 2D COMMENTS: 1. Normal left ventricular size, wall thickness and normal global left ventricular systolic function. A sigmoid appearance of the basal ventricular septum was noted, a benign finding. The estimated global left ventricular systolic ejection fraction is 60-65%/. 2. Normal left atrium. Normal right atrium and right ventricle. 3. The atrial septum appeared to be normal without evidence of defect of shunt. 4. Normal aortic root. 5. Trace pericardial effusion noted. No evidence of cardiac tamponade. 6. Minimally calcified aortic valve with normal leaflet excursion. Mildly calcified mitral annulus with normal anterior mitral valve leaflet motion. Normal tricuspid valve. The pulmonic valve and proximal pulmonary artery branches were not well visualized. 7. The inferior vena cava was normal in size. Central venous pressure was most likely normal. DOPPLER: It detects trace aortic regurgitation, trace mitral regurgitation and mild tricuspid regurgitation. The calculated pulmonary artery systolic pressure varies between 30-40 mmHg. Subsequently, there are findings consistent with grade 1 left ventricular diastolic dysfunction. IMPRESSION: 1. Normal global left ventricular systolic function with a hyperdynamic left ventricle. Abnormal relaxation pattern was noted across the mitral valve leaflets as well as the mitral valve annulus consistent with features of grade 1 left ventricular diastolic dysfunction. 2. Aortic valve sclerosis with trace aortic regurgitation, but no aortic stenosis. 3. Mitral annulus calcification with trace mitral regurgitation. 4. Mild tricuspid regurgitation with mild pulmonary hypertension. 5. Trace pericardial effusion. No evidence of cardiac tamponade.
== END ==
LOC: M CARPUL 07:52
PROVIDERS: ATTEND Family Medicine
DX: R01.1 Cardiac murmur, unspecified (principal)

== ENCOUNTER → 2021-11-07 | Outpatient (REF) | payer MEDICARE | LOC: M LAB REF 17:26 | PROVIDERS: ATTEND Physician Assistant | DX: R21 Rash and other nonspecific skin eruption (principal) ==

== ENCOUNTER → 2021-11-13 | Outpatient (CLI) | payer MEDICARE ==
[2021-11-13 10:59] LABS: APPEARANCE, URINE CLEAR (CLEAR); BACTERIA, URINE AUTO NEGATIVE (NEGATIVE); BASO % 0.3 % (0.0-1.0); BILIRUBIN, URINE AUTO NEGATIVE (NEGATIVE); BLOOD, URINE BLOOD NEGATIVE (NEGATIVE); COLOR, URINE YELLOW (YELLOW); EOS # 0.1 10^3/uL (0.0-0.5); EOS % 2.8 % (0.0-3.0); GLUCOSE, URINE (UA) AUTO NEGATIVE (NEGATIVE); HEMATOCRIT 38.2 % (36.0-47.0); KETONE, URINE AUTO TRACE mg/dL (NEGATIVE); LEUKOCYTE ESTERASE, URINE AUTO NEGATIVE (NEGATIVE); LYMPH # 1.1 10^3/uL (1.5-5.0); MEAN CORPUSCULAR HEMOGLOBIN 28.4 pg (27.0-33.0); MEAN CORPUSCULAR HGB CONC 31.4 g/dl (32.0-36.5); MEAN CORPUSCULAR VOLUME 90.3 fl (80.0-96.0); MONO # 0.4 10^3/uL (0.0-0.8); MONO % 12.1 % (2.0-8.0); MUCUS, URINE SMALL (NEGATIVE); NEUTROPHILS % 54.5 % (36.0-66.0); NITRITE, URINE AUTO NEGATIVE (NEGATIVE); PLATELET COUNT, AUTOMATED 207 10^3/uL (150-450); PROTEIN, URINE AUTO NEGATIVE (NEGATIVE); RBC, URINE AUTO 0 /HPF (0-3); RED BLOOD COUNT 4.23 10^6/uL (4.00-5.40); SPECIFIC GRAVITY URINE AUTO 1.028 (1.002-1.035); SQUAMOUS EPITHELIAL CELL UR AU 0 /HPF (0-6); UROBILINOGEN, URINE AUTO 0.2 mg/dL (0.0-2.0); WBC, URINE AUTO 2 /HPF (0-3); WHITE BLOOD COUNT 3.6 10^3/uL (4.0-10.0)
[2021-11-13 11:22] LABS: TOTAL PROTEIN,RANDOM URINE 18.3 MG/DL (0.0-12.0)
[2021-11-13 11:29] LABS: ERYTHROCYTE SEDIMENTATION RATE 47 mm/hr (0-30)
[2021-11-13 11:45] LABS: ALBUMIN 3.5 GM/DL (3.2-5.2); ALT/SGPT 28 U/L (12-78); BILIRUBIN,TOTAL 0.2 MG/DL (0.2-1.0); BLOOD UREA NITROGEN 17 MG/DL (7-18); C REACTIVE PROTEIN QUANTITATIV 0.34 MG/DL (0.00-0.30); CALCIUM LEVEL 9.2 MG/DL (8.8-10.2); CARBON DIOXIDE LEVEL 26 MEQ/L (21-32); CHLORIDE LEVEL 107 MEQ/L (98-107); COMPLEMENT C3 130 MG/DL (90-180); COMPLEMENT C4 11 MG/DL (10-40); CREATININE FOR GFR 0.64 MG/DL (0.55-1.30); GLOMERULAR FILTRATION RATE > 60.0 (>45); GLUCOSE, FASTING 91 MG/DL (70-100); SODIUM LEVEL 137 MEQ/L (136-145); TOTAL PROTEIN 8.2 GM/DL (6.4-8.2)
== END ==
LOC: M PLALAB 09:38
PROVIDERS: ATTEND Internal Medicine Rheumatology
DX: M35.01 Sjogren syndrome with keratoconjunctivitis (principal)

== ENCOUNTER → 2022-02-06 | Outpatient (CLI) | payer MEDICARE | LOC: M WHC 13:04 | PROVIDERS: ATTEND Student in an Organized Health Care Education/Training Program | DX: Z12.31 Encounter for screening mammogram for malignant neoplasm of breast (principal) ==

== ENCOUNTER → 2022-04-11 | Outpatient (CLI) | payer MEDICARE ==
[~2022-04-11] MED LIST changes: -ACET1TAB16 PO; +ACET300T48 PO
[2022-04-11 13:29] LABS: BASO % 0.2 % (0.0-1.0); EOS # 0.1 10^3/uL (0.0-0.5); EOS % 2.3 % (0.0-3.0); HEMATOCRIT 39.8 % (36.0-47.0); HEMOGLOBIN 12.5 g/dl (12.0-15.5); LYMPH # 1.8 10^3/uL (1.5-5.0); LYMPH % 35.4 % (24.0-44.0); MEAN CORPUSCULAR HEMOGLOBIN 28.7 pg (27.0-33.0); MEAN CORPUSCULAR HGB CONC 31.4 g/dl (32.0-36.5); MEAN CORPUSCULAR VOLUME 91.5 fl (80.0-96.0); MONO # 0.6 10^3/uL (0.0-0.8); MONO % 11.4 % (2.0-8.0); NEUTROPHILS # 2.6 10^3/uL (1.5-8.5); NEUTROPHILS % 50.3 % (36.0-66.0); PLATELET COUNT, AUTOMATED 204 10^3/uL (150-450); RED BLOOD COUNT 4.35 10^6/uL (4.00-5.40); WHITE BLOOD COUNT 5.2 10^3/uL (4.0-10.0)
[2022-04-11 13:39] LABS: APPEARANCE, URINE HAZY (CLEAR); BACTERIA, URINE AUTO NEGATIVE (NEGATIVE); BILIRUBIN, URINE AUTO NEGATIVE (NEGATIVE); BLOOD, URINE BLOOD NEGATIVE (NEGATIVE); COLOR, URINE YELLOW (YELLOW); GLUCOSE, URINE (UA) AUTO NEGATIVE (NEGATIVE); KETONE, URINE AUTO NEGATIVE (NEGATIVE); LEUKOCYTE ESTERASE, URINE AUTO NEGATIVE (NEGATIVE); MUCUS, URINE SMALL (NEGATIVE); NITRITE, URINE AUTO NEGATIVE (NEGATIVE); PROTEIN, URINE AUTO 1+ mg/dL (NEGATIVE); RBC, URINE AUTO 2 /HPF (0-3); SPECIFIC GRAVITY URINE AUTO 1.028 (1.002-1.035); SQUAMOUS EPITHELIAL CELL UR AU 0 /HPF (0-6); UROBILINOGEN, URINE AUTO 0.2 mg/dL (0.0-2.0); WBC, URINE AUTO 3 /HPF (0-3)
[2022-04-11 13:54] LABS: TOTAL PROTEIN,RANDOM URINE 51.5 MG/DL (0.0-12.0)
[2022-04-11 14:01] LABS: ALBUMIN 3.7 GM/DL (3.2-5.2); ALT/SGPT 41 U/L (12-78); BILIRUBIN,TOTAL 0.3 MG/DL (0.2-1.0); BLOOD UREA NITROGEN 16 MG/DL (7-18); CALCIUM LEVEL 9.5 MG/DL (8.8-10.2); CARBON DIOXIDE LEVEL 27 MEQ/L (21-32); CHLORIDE LEVEL 106 MEQ/L (98-107); COMPLEMENT C3 126 MG/DL (90-180); COMPLEMENT C4 13 MG/DL (10-40); CREATININE FOR GFR 0.88 MG/DL (0.55-1.30); GLOMERULAR FILTRATION RATE > 60.0 (>39); GLUCOSE, FASTING 136 MG/DL (70-100); POTASSIUM SERUM 4.6 MEQ/L (3.5-5.1); SODIUM LEVEL 138 MEQ/L (136-145); TOTAL PROTEIN 8.7 GM/DL (6.4-8.2)
[2022-04-11 14:34] LABS: ERYTHROCYTE SEDIMENTATION RATE 44 mm/hr (0-30)
[2022-04-12 12:23] LABS: SSA SJOGRENS A >8.0 AI (0.0-0.9); SSB SJOGRENS B >8.0 AI (0.0-0.9)
== END ==
LOC: M PLALAB 10:07
PROVIDERS: ATTEND Internal Medicine Rheumatology
DX: M35.01 Sjogren syndrome with keratoconjunctivitis (principal)

== ENCOUNTER → 2022-07-09 | Outpatient (CLI) | payer MEDICARE | LOC: M WHC 08:30 | PROVIDERS: ATTEND Family Medicine | DX: M85.89 Other specified disorders of bone density and structure, multiple sites (principal); E11.9 Type 2 diabetes mellitus without complications; R79.89 Other specified abnormal findings of blood chemistry; E78.6 Lipoprotein deficiency; Z86.19 Personal history of other infectious and parasitic diseases ==

== ENCOUNTER → 2022-07-09 | Outpatient (CLI) | payer MEDICARE ==
[2022-07-09 11:59] LABS: CREATININE, URINE 98.6 MG/DL; MALB URINE SIEMENS 7.1 MG/L; MAU/CREAT RATIO 7.2 MCG/MG (0.0-30.0)
[2022-07-09 12:12] LABS: ALBUMIN 3.5 GM/DL (3.2-5.2); BILIRUBIN,DIRECT 0.1 MG/DL (0.0-0.2); BILIRUBIN,TOTAL 0.4 MG/DL (0.2-1.0); CHOLESTEROL RISK RATIO 3.157 (<5); TOTAL PROTEIN 8.9 GM/DL (6.4-8.2)
[2022-07-09 12:52] LABS: TOTAL 25(OH) VITAMIN D 44.4 NG/ML (30.0-100.0)
[2022-07-11 02:07] LABS: HEPATITIS C QUANTITATION HCV Not Detected IU/mL (.)
== END ==
LOC: M PLALAB 08:06
PROVIDERS: ATTEND Family Medicine
DX: E11.9 Type 2 diabetes mellitus without complications (principal); M85.89 Other specified disorders of bone density and structure, multiple sites; R79.89 Other specified abnormal findings of blood chemistry; Z86.19 Personal history of other infectious and parasitic diseases; E78.6 Lipoprotein deficiency; E78.2 Mixed hyperlipidemia

== ENCOUNTER 2022-08-04 09:33 | Inpatient (IN) | payer MEDICARE ==
[~2022-08-04] VITALS: Ht 157.5 cm; Wt 74.0 kg
[2022-08-04] MEDS ORDERED: XALA0.007 OU (09:56)
[2022-08-04] MEDS ORDERED: SPIR-10 PO (09:56)
[2022-08-04] MEDS ORDERED: ONDANSETRON 4MG 2ML VIAL IV ONE (10:15)
[2022-08-04 10:31] LABS: BASO % 0.1 % (0.0-1.0); HEMATOCRIT 36.7 % (36.0-47.0); HEMOGLOBIN 12.3 g/dl (12.0-15.5); LYMPH # 1.2 10^3/uL (1.5-5.0); MEAN CORPUSCULAR HEMOGLOBIN 29.9 pg (27.0-33.0); MEAN CORPUSCULAR HGB CONC 33.5 g/dl (32.0-36.5); MEAN CORPUSCULAR VOLUME 89.1 fl (80.0-96.0); MONO # 0.9 10^3/uL (0.0-0.8); MONO % 4.9 % (2.0-8.0); NEUTROPHILS # 15.1 10^3/uL (1.5-8.5); NEUTROPHILS % 87.5 % (36.0-66.0); PLATELET COUNT, AUTOMATED 240 10^3/uL (150-450); RED BLOOD COUNT 4.12 10^6/uL (4.00-5.40); WHITE BLOOD COUNT 17.2 10^3/uL (4.0-10.0)
[2022-08-04] MEDS: MORPHINE 2 MG/ML 1ML VIAL IV PRN ×2 (10:32→11:07)
[2022-08-04] MEDS ORDERED: NS 1,000 ML IV SCH (11:00)
[2022-08-04 11:03] LABS: ALBUMIN 3.4 GM/DL (3.2-5.2); BILIRUBIN,DIRECT 0.3 MG/DL (0.0-0.2); BILIRUBIN,TOTAL 0.8 MG/DL (0.2-1.0); CREATININE FOR GFR 1.43 MG/DL (0.55-1.30); GLOMERULAR FILTRATION RATE 46.8 (>39); POTASSIUM SERUM 3.7 MEQ/L (3.5-5.1); TOTAL PROTEIN 8.2 GM/DL (6.4-8.2)
[2022-08-04] MEDS ORDERED: MORPHINE 4 MG/ML 1ML VIAL/SYRINGE As Ordered ONE (13:04)
[2022-08-04] MEDS ORDERED: MORPHINE 4 MG/ML 1ML VIAL/SYRINGE IV ONE (13:05)
[2022-08-04] MEDS: LR 1,000 ML IV SCH ×2 (16:15→22:55)
[2022-08-04] MEDS ORDERED: KETOROLAC 30 MG/ML 1ML VIAL IV PRN (16:15)
[2022-08-04] MEDS ORDERED: LISI20TA33 PO (16:19)
[2022-08-04] MEDS ORDERED: GLUCOSE 4GM CHEW TABLET PO PRN (16:45)
[2022-08-04] MEDS ORDERED: GLUCAGON INJ 1MG VIAL SC PRN (16:45)
[2022-08-04] MEDS ORDERED: DEXTROSE 50% 50 ML SYRINGE IV PRN (16:45)
[2022-08-04] MEDS ORDERED: ASPI81TA26 PO (16:46)
[2022-08-04] MEDS ORDERED: CALCCAP4 PO (16:46)
[2022-08-04] MEDS ORDERED: PRESCAP PO (16:46)
[2022-08-04] MEDS ORDERED: HOME MED LIST COMPLETE! XX SCH (16:50)
[2022-08-04 17:37] LABS: RSV AMPLIFICATION NEGATIVE (NEGATIVE)
[2022-08-04] MEDS: INSULIN LISPRO (NovoLOG) PER UNIT SC SCH (18:00)
[2022-08-04 18:30] VITALS: BP 114/65
[2022-08-04] MEDS: PANTOPRAZOLE 40MG VIAL IV SCH (18:44)
[2022-08-04] MEDS: ONDANSETRON 4MG 2ML VIAL IV PRN (18:47)
[2022-08-04] MEDS: MORPHINE 4 MG/ML 1ML VIAL/SYRINGE IV PRN (18:47)
[2022-08-04] MEDS ORDERED: PERCOCET 5MG/325MG TAB PO ONE (21:00)
[2022-08-04] MEDS: LATANOPROST 0.005% OPHTH SOLN 2.5 ML OU SCH (22:21)
[2022-08-05] MEDS: LR 1,000 ML IV SCH ×3 (00:45→16:30)
[2022-08-05] MEDS: MORPHINE 4 MG/ML 1ML VIAL/SYRINGE IV PRN ×5 (00:46→23:36)
[2022-08-05 05:15] VITALS: BP 104/49
[2022-08-05] MEDS: INSULIN LISPRO (NovoLOG) PER UNIT SC SCH ×5 (06:00→23:23)
[2022-08-05 06:45] LABS: HEMATOCRIT 29.2 % (36.0-47.0); LYMPH % 8.3 % (24.0-44.0); MEAN CORPUSCULAR HEMOGLOBIN 29.9 pg (27.0-33.0); MEAN CORPUSCULAR HGB CONC 32.9 g/dl (32.0-36.5); MONO # 0.7 10^3/uL (0.0-0.8); MONO % 6.1 % (2.0-8.0); NEUTROPHILS # 9.8 10^3/uL (1.5-8.5); PLATELET COUNT, AUTOMATED 173 10^3/uL (150-450); RED BLOOD COUNT 3.21 10^6/uL (4.00-5.40); WHITE BLOOD COUNT 11.6 10^3/uL (4.0-10.0)
[2022-08-05] MEDS ORDERED: HYDROMORPHONE HCL 0.5 MG/ 0.5 ML SYRINGE (J1170 PER 1) IV ONE (06:45)
[2022-08-05] MEDS: ACETAMINOPHEN TAB 650MG DOSE (2X325MG) PO PRN ×3 (06:48→21:18)
[2022-08-05 06:50] LABS: INR 1.21; PROTHROMBIN TIME 15.7 SECONDS (12.7-14.5)
[2022-08-05 06:51] LABS: PARTIAL THROMBOPLASTIN TIME 29.5 SECONDS (25.9-37.0)
[2022-08-05 06:54] LABS: HEMOGLOBIN 9.6 g/dl (12.0-15.5)
[2022-08-05 07:36] LABS: ALBUMIN 2.6 GM/DL (3.2-5.2); ALT/SGPT 16 U/L (12-78); BILIRUBIN,DIRECT 0.2 MG/DL (0.0-0.2); BILIRUBIN,TOTAL 0.6 MG/DL (0.2-1.0); BLOOD UREA NITROGEN 46 MG/DL (7-18); CALCIUM LEVEL 8.5 MG/DL (8.8-10.2); CARBON DIOXIDE LEVEL 24 MEQ/L (21-32); CHLORIDE LEVEL 104 MEQ/L (98-107); CREATININE FOR GFR 1.04 MG/DL (0.55-1.30); GLOMERULAR FILTRATION RATE > 60.0 (>39); GLUCOSE, FASTING 97 MG/DL (70-100); LIPASE 188 U/L (73-393); POTASSIUM SERUM 3.8 MEQ/L (3.5-5.1); SODIUM LEVEL 133 MEQ/L (136-145); TOTAL PROTEIN 6.7 GM/DL (6.4-8.2)
[2022-08-05] MEDS ORDERED: KETOROLAC 30 MG/ML 1ML VIAL IV SCH (09:00)
[2022-08-05] MEDS ORDERED: KETOROLAC 30 MG/ML 1ML VIAL As Ordered ONE (09:06)
[2022-08-05] MEDS: ONDANSETRON 4MG 2ML VIAL IV PRN ×3 (09:17→23:36)
[2022-08-05] MEDS: ENOXAPARIN 40MG/0.4ML SYRINGE (J1650 PER 10MG) SC SCH (09:18)
[2022-08-05 14:00] VITALS: BP 123/67
[2022-08-05] MEDS: KETOROLAC 30 MG/ML 1ML VIAL IV SCH ×2 (16:32→21:19)
[2022-08-05] MEDS: PANTOPRAZOLE 40MG VIAL IV SCH (18:26)
[2022-08-05] MEDS ORDERED: REMDESIVIR 200 MG in NS 250 ML IV ONE (20:00)
[2022-08-05 20:06] VITALS: BP 109/52
[2022-08-05] MEDS: LATANOPROST 0.005% OPHTH SOLN 2.5 ML OU SCH (21:20)
[2022-08-05] MEDS ORDERED: SODIUM CHLORIDE 0.9% INJ 10 ML SYR IV ONE (22:00)
[2022-08-06] MEDS: LR 1,000 ML IV SCH ×3 (03:56→18:30)
[2022-08-06] MEDS: KETOROLAC 30 MG/ML 1ML VIAL IV SCH ×4 (03:57→21:30)
[2022-08-06] MEDS: INSULIN LISPRO (NovoLOG) PER UNIT SC SCH ×4 (05:58→23:42)
[2022-08-06 06:00] VITALS: BP 144/63
[2022-08-06 06:23] LABS: BASO % 0.1 % (0.0-1.0); EOS % 0.1 % (0.0-3.0); HEMATOCRIT 28.1 % (36.0-47.0); HEMOGLOBIN 8.9 g/dl (12.0-15.5); LYMPH # 0.7 10^3/uL (1.5-5.0); LYMPH % 8.7 % (24.0-44.0); MEAN CORPUSCULAR HEMOGLOBIN 28.6 pg (27.0-33.0); MEAN CORPUSCULAR HGB CONC 31.7 g/dl (32.0-36.5); MEAN CORPUSCULAR VOLUME 90.4 fl (80.0-96.0); MONO # 0.6 10^3/uL (0.0-0.8); MONO % 7.2 % (2.0-8.0); NEUTROPHILS # 6.3 10^3/uL (1.5-8.5); NEUTROPHILS % 83.5 % (36.0-66.0); PLATELET COUNT, AUTOMATED 169 10^3/uL (150-450); RED BLOOD COUNT 3.11 10^6/uL (4.00-5.40); WHITE BLOOD COUNT 7.6 10^3/uL (4.0-10.0)
[2022-08-06 07:03] LABS: ALBUMIN 2.2 GM/DL (3.2-5.2); ALT/SGPT 26 U/L (12-78); BILIRUBIN,DIRECT 0.3 MG/DL (0.0-0.2); BILIRUBIN,TOTAL 0.4 MG/DL (0.2-1.0); BLOOD UREA NITROGEN 30 MG/DL (7-18); CALCIUM LEVEL 8.3 MG/DL (8.8-10.2); CARBON DIOXIDE LEVEL 25 MEQ/L (21-32); CHLORIDE LEVEL 105 MEQ/L (98-107); CREATININE FOR GFR 0.79 MG/DL (0.55-1.30); GLOMERULAR FILTRATION RATE > 60.0 (>39); GLUCOSE, FASTING 102 MG/DL (70-100); POTASSIUM SERUM 3.6 MEQ/L (3.5-5.1); SODIUM LEVEL 135 MEQ/L (136-145)
[2022-08-06] MEDS: ONDANSETRON 4MG 2ML VIAL IV PRN ×2 (07:52→15:11)
[2022-08-06] MEDS: MORPHINE 4 MG/ML 1ML VIAL/SYRINGE IV PRN ×3 (07:53→18:25)
[2022-08-06] MEDS: ENOXAPARIN 40MG/0.4ML SYRINGE (J1650 PER 10MG) SC SCH (08:51)
[2022-08-06] MEDS: ACETAMINOPHEN TAB 650MG DOSE (2X325MG) PO PRN ×2 (12:56→21:32)
[2022-08-06 14:00] VITALS: BP 101/52
[2022-08-06] MEDS: PANTOPRAZOLE 40MG VIAL IV SCH (18:25)
[2022-08-06 20:47] VITALS: BP 134/76
[2022-08-06] MEDS: REMDESIVIR 100 MG in NS 250 ML IV SCH (21:30)
[2022-08-06] MEDS: LATANOPROST 0.005% OPHTH SOLN 2.5 ML OU SCH (21:31)
[2022-08-06] MEDS: SODIUM CHLORIDE 0.9% INJ 10 ML SYR IV SCH (21:31)
[2022-08-07] MEDS: MORPHINE 4 MG/ML 1ML VIAL/SYRINGE IV PRN ×2 (00:12→08:00)
[2022-08-07] MEDS: KETOROLAC 30 MG/ML 1ML VIAL IV SCH ×2 (03:31→08:55)
[2022-08-07 06:00] VITALS: BP 127/68
[2022-08-07] MEDS: INSULIN LISPRO (NovoLOG) PER UNIT SC SCH ×3 (06:00→18:00)
[2022-08-07] MEDS: ONDANSETRON 4MG 2ML VIAL IV PRN ×2 (06:16→13:44)
[2022-08-07 07:04] LABS: EOS % 0.1 % (0.0-3.0); HEMATOCRIT 27.8 % (36.0-47.0); HEMOGLOBIN 8.8 g/dl (12.0-15.5); LYMPH # 0.7 10^3/uL (1.5-5.0); LYMPH % 10.2 % (24.0-44.0); MEAN CORPUSCULAR HGB CONC 31.7 g/dl (32.0-36.5); MEAN CORPUSCULAR VOLUME 91.7 fl (80.0-96.0); MONO # 0.7 10^3/uL (0.0-0.8); MONO % 10.7 % (2.0-8.0); NEUTROPHILS # 5.3 10^3/uL (1.5-8.5); NEUTROPHILS % 78.3 % (36.0-66.0); PLATELET COUNT, AUTOMATED 191 10^3/uL (150-450); RED BLOOD COUNT 3.03 10^6/uL (4.00-5.40); WHITE BLOOD COUNT 6.8 10^3/uL (4.0-10.0)
[2022-08-07 07:35] LABS: ALBUMIN 2.2 GM/DL (3.2-5.2); ALT/SGPT 31 U/L (12-78); BILIRUBIN,DIRECT 0.5 MG/DL (0.0-0.2); BILIRUBIN,TOTAL 0.8 MG/DL (0.2-1.0); BLOOD UREA NITROGEN 23 MG/DL (7-18); CALCIUM LEVEL 8.3 MG/DL (8.8-10.2); CARBON DIOXIDE LEVEL 24 MEQ/L (21-32); CHLORIDE LEVEL 104 MEQ/L (98-107); CREATININE FOR GFR 0.83 MG/DL (0.55-1.30); GLOMERULAR FILTRATION RATE > 60.0 (>39); GLUCOSE, FASTING 138 MG/DL (70-100); POTASSIUM SERUM 3.2 MEQ/L (3.5-5.1); SODIUM LEVEL 134 MEQ/L (136-145); TOTAL PROTEIN 6.4 GM/DL (6.4-8.2)
[2022-08-07] MEDS ORDERED: POTASSIUM CHLORIDE 10MEQ SR TABLET PO ONE (08:15)
[2022-08-07] MEDS: LR 1,000 ML IV SCH (08:55)
[2022-08-07] MEDS: ENOXAPARIN 40MG/0.4ML SYRINGE (J1650 PER 10MG) SC SCH (08:55)
[2022-08-07] MEDS ORDERED: KETOROLAC 30 MG/ML 1ML VIAL IV PRN (11:25)
[2022-08-07] MEDS: SIMETHICONE 80MG CHEW TAB PO PRN ×2 (13:46→21:53)
[2022-08-07] MEDS: PERCOCET 5MG/325MG TAB PO PRN ×2 (13:47→21:53)
[2022-08-07 14:00] VITALS: BP 136/55
[2022-08-07] MEDS: PANTOPRAZOLE 40MG VIAL IV SCH (18:09)
[2022-08-07] MEDS: ACETAMINOPHEN TAB 650MG DOSE (2X325MG) PO PRN (18:09)
[2022-08-07 19:58] VITALS: BP 137/61
[2022-08-07] MEDS: LATANOPROST 0.005% OPHTH SOLN 2.5 ML OU SCH (21:52)
[2022-08-07] MEDS: REMDESIVIR 100 MG in NS 250 ML IV SCH (21:54)
[2022-08-07] MEDS: SODIUM CHLORIDE 0.9% INJ 10 ML SYR IV SCH (21:54)
[2022-08-08 05:50] VITALS: BP 133/59
[2022-08-08] MEDS: ONDANSETRON 4MG 2ML VIAL IV PRN ×2 (05:55→15:40)
[2022-08-08] MEDS: INSULIN LISPRO (NovoLOG) PER UNIT SC SCH ×3 (06:00→12:00)
[2022-08-08 06:09] LABS: BASO % 0.1 % (0.0-1.0); EOS % 0.1 % (0.0-3.0); HEMOGLOBIN 9.3 g/dl (12.0-15.5); LYMPH # 0.8 10^3/uL (1.5-5.0); LYMPH % 11.4 % (24.0-44.0); MEAN CORPUSCULAR HEMOGLOBIN 29.1 pg (27.0-33.0); MEAN CORPUSCULAR HGB CONC 32.1 g/dl (32.0-36.5); MEAN CORPUSCULAR VOLUME 90.6 fl (80.0-96.0); MONO # 0.9 10^3/uL (0.0-0.8); MONO % 13.8 % (2.0-8.0); PLATELET COUNT, AUTOMATED 221 10^3/uL (150-450); WHITE BLOOD COUNT 6.8 10^3/uL (4.0-10.0)
[2022-08-08 06:51] LABS: BLOOD UREA NITROGEN 14 MG/DL (7-18); CALCIUM LEVEL 8.2 MG/DL (8.8-10.2); CARBON DIOXIDE LEVEL 23 MEQ/L (21-32); CHLORIDE LEVEL 106 MEQ/L (98-107); GLOMERULAR FILTRATION RATE > 60.0 (>39); GLUCOSE, FASTING 150 MG/DL (70-100); POTASSIUM SERUM 3.8 MEQ/L (3.5-5.1); SODIUM LEVEL 137 MEQ/L (136-145)
[2022-08-08] MEDS: PERCOCET 5MG/325MG TAB PO PRN (08:29)
[2022-08-08] MEDS: ENOXAPARIN 40MG/0.4ML SYRINGE (J1650 PER 10MG) SC SCH (08:29)
[2022-08-08 14:00] VITALS: BP 139/61
[2022-08-08] MEDS ORDERED: ONDA4TAB6 PO (15:26)
[2022-08-08] MEDS ORDERED: AMLO1TAB25 PO (15:29)
[2022-08-08] MEDS ORDERED: DICL50TA2 PO (15:41)
[2022-08-08] MEDS ORDERED: HYDR-4429 PO (15:41)
== END 2022-08-08 17:54 | disposition home or self-care (01) | DRG 177 ==
LOC: M ED 09:33 → M ED INP 16:15 → EEVIPCON 16:15 → ENRESERV 16:30 → M MSPAV 18:27
PROVIDERS: ADMIT Internal Medicine Nephrology; ATTEND Internal Medicine
PROC: XW033E5 Introduction of Remdesivir Anti-infective into Peripheral Vein, Percutaneous Approach, New Technology Group 5 (ICD-10-PCS; principal; 2022-08-05)
DX: U07.1 COVID-19 (principal); K85.90 Acute pancreatitis without necrosis or infection, unspecified; N17.9 Acute kidney failure, unspecified; R65.10 Systemic inflammatory response syndrome (SIRS) of non-infectious origin without acute organ dysfunction; I10 Essential (primary) hypertension; E78.2 Mixed hyperlipidemia; M35.00 Sjogren syndrome, unspecified; E11.9 Type 2 diabetes mellitus without complications; H04.123 Dry eye syndrome of bilateral lacrimal glands; Z79.84 Long term (current) use of oral hypoglycemic drugs; Z79.899 Other long term (current) drug therapy; Z96.653 Presence of artificial knee joint, bilateral

== ENCOUNTER → 2022-09-09 | Outpatient (CLI) | payer MEDICARE ==
[~2022-09-09] MED LIST changes: +AMLO1TAB25 PO; +ASPI81TA26 PO; +CALCCAP4 PO; +DICL50TA2 PO; +HYDR-4429 PO; +LISI20TA33 PO; +ONDA4TAB6 PO; +PRESCAP PO; +SPIR-10 PO; +XALA0.007 OU
[2022-09-09 15:53] LABS: EOS # 0.1 10^3/uL (0.0-0.5); EOS % 1.1 % (0.0-3.0); HEMATOCRIT 36.7 % (36.0-47.0); HEMOGLOBIN 11.3 g/dl (12.0-15.5); LYMPH # 1.7 10^3/uL (1.5-5.0); LYMPH % 38.4 % (24.0-44.0); MEAN CORPUSCULAR HEMOGLOBIN 28.9 pg (27.0-33.0); MEAN CORPUSCULAR HGB CONC 30.8 g/dl (32.0-36.5); MEAN CORPUSCULAR VOLUME 93.9 fl (80.0-96.0); MONO # 0.4 10^3/uL (0.0-0.8); MONO % 9.8 % (2.0-8.0); NEUTROPHILS # 2.2 10^3/uL (1.5-8.5); NEUTROPHILS % 50.5 % (36.0-66.0); PLATELET COUNT, AUTOMATED 248 10^3/uL (150-450); RED BLOOD COUNT 3.91 10^6/uL (4.00-5.40); WHITE BLOOD COUNT 4.4 10^3/uL (4.0-10.0)
[2022-09-09 16:22] LABS: APPEARANCE, URINE MANUAL CLEAR (CLEAR); COLOR, URINE MANUAL YELLOW (YELLOW)
[2022-09-09 16:23] LABS: PH,URINE MAN 5.5 UNITS (5.0 - 7.0); SPECIFIC GRAVITY,URINE MANUAL 1.015 (1.002-1.035)
[2022-09-09 16:24] LABS: BILIRUBIN, URINE MANUAL NEGATIVE (NEGATIVE); BLOOD URINE MANUAL NEGATIVE (NEGATIVE); GLUCOSE, URINE (UA) MANUAL NEGATIVE (NEGATIVE); KETONE, URINE MANUAL NEGATIVE (NEGATIVE); LEUKOCYTE ESTERASE, URINE MAN POSITIVE (NEGATIVE); NITRITE, URINE MANUAL NEGATIVE (NEGATIVE); PROTEIN, URINE MANUAL NEGATIVE (NEGATIVE); UROBILINOGEN, URINE MANUAL NORMAL (NORMAL)
[2022-09-09 16:27] LABS: HEMOGLOBIN A1c 6.7 %
[2022-09-09 16:33] LABS: ERYTHROCYTE SEDIMENTATION RATE 61 mm/hr (0-30)
[2022-09-09 17:14] LABS: TOTAL PROTEIN,RANDOM URINE 28.7 MG/DL (0.0-12.0)
[2022-09-09 17:21] LABS: ALBUMIN 3.7 GM/DL (3.2-5.2); ALT/SGPT 40 U/L (12-78); BILIRUBIN,TOTAL 0.3 MG/DL (0.2-1.0); BLOOD UREA NITROGEN 19 MG/DL (7-18); C REACTIVE PROTEIN QUANTITATIV 0.33 MG/DL (0.00-0.30); CALCIUM LEVEL 9.5 MG/DL (8.8-10.2); CARBON DIOXIDE LEVEL 24 MEQ/L (21-32); CHLORIDE LEVEL 107 MEQ/L (98-107); COMPLEMENT C3 155 MG/DL (90-180); COMPLEMENT C4 17 MG/DL (10-40); CREATININE FOR GFR 0.71 MG/DL (0.55-1.30); GLOMERULAR FILTRATION RATE > 60.0 (>39); GLUCOSE, FASTING 99 MG/DL (70-100); POTASSIUM SERUM 4.8 MEQ/L (3.5-5.1); SODIUM LEVEL 136 MEQ/L (136-145); TOTAL PROTEIN 8.6 GM/DL (6.4-8.2)
[2022-09-09 17:30] LABS: BACTERIA, URINE SMALL AMOUNT; HYALINE CAST, URINE NONE SEEN /lpf (0-1); MUCUS, URINE MOD AMOUNT (NEGATIVE); RBC, URINE NONE SEEN /hpf (0-3); SQUAMOUS EPITHELIAL CELL URINE MOD AMOUNT /hpf (SMALL AMT)
== END ==
LOC: M PLALAB 12:00
PROVIDERS: ATTEND Student in an Organized Health Care Education/Training Program
DX: K85.90 Acute pancreatitis without necrosis or infection, unspecified (principal)

== ENCOUNTER → 2022-10-23 | Outpatient (CLI) | payer MEDICARE ==
[2022-10-23 15:51] LABS: BASO % 0.3 % (0.0-1.0); EOS # 0.1 10^3/uL (0.0-0.5); EOS % 1.6 % (0.0-3.0); HEMATOCRIT 35.2 % (36.0-47.0); HEMOGLOBIN 11.4 g/dl (12.0-15.5); LYMPH # 1.4 10^3/uL (1.5-5.0); LYMPH % 35.4 % (24.0-44.0); MEAN CORPUSCULAR HEMOGLOBIN 29.4 pg (27.0-33.0); MEAN CORPUSCULAR HGB CONC 32.4 g/dl (32.0-36.5); MEAN CORPUSCULAR VOLUME 90.7 fl (80.0-96.0); MONO # 0.4 10^3/uL (0.0-0.8); MONO % 10.2 % (2.0-8.0); NEUTROPHILS % 52.5 % (36.0-66.0); PLATELET COUNT, AUTOMATED 225 10^3/uL (150-450); RED BLOOD COUNT 3.88 10^6/uL (4.00-5.40); WHITE BLOOD COUNT 3.8 10^3/uL (4.0-10.0)
[2022-10-23 16:33] LABS: ERYTHROCYTE SEDIMENTATION RATE 46 mm/hr (0-30)
== END ==
LOC: M PLALAB 13:32
PROVIDERS: ATTEND Orthopaedic Surgery Sports Medicine
DX: M25.569 Pain in unspecified knee (principal)

== ENCOUNTER → 2022-10-23 | Outpatient (CLI) | payer MEDICARE ==
[2022-10-23 16:25] LABS: ALBUMIN 3.7 G/DL (3.2-5.2); BLOOD UREA NITROGEN 16 MG/DL (9-23); CALCIUM LEVEL 8.9 MG/DL (8.3-10.6); CARBON DIOXIDE LEVEL 27 MMOL/L (20-31); CHLORIDE LEVEL 100 MMOL/L (98-107); CREATININE FOR GFR 0.62 MG/DL (0.55-1.30); GLOMERULAR FILTRATION RATE > 60.0 (>39); GLUCOSE, FASTING 208 MG/DL (74-106); PHOSPHORUS LEVEL 3.3 MG/DL (2.4-5.1); POTASSIUM SERUM 3.9 MMOL/L (3.5-5.1); SODIUM LEVEL 137 MMOL/L (136-145)
[2022-10-23 20:28] LABS: CREATININE, URINE 54.8 MG/DL
[2022-10-23 20:30] LABS: MAU/CREAT RATIO 10.9 MCG/MG (0.0-30.0)
== END ==
LOC: M PLALAB 13:30
PROVIDERS: ATTEND Family Medicine
DX: E11.9 Type 2 diabetes mellitus without complications (principal)

== ENCOUNTER → 2022-11-05 | Outpatient (REF) | payer MEDICARE | LOC: M SFHCPLAZ 15:54 | PROVIDERS: ATTEND Student in an Organized Health Care Education/Training Program | DX: N39.0 Urinary tract infection, site not specified (principal) ==

== ENCOUNTER → 2022-11-29 | Outpatient (CLI) | payer MEDICARE ==
[~2022-11-29] MED LIST changes: +[UNRECOGNIZED DRUG - CODE] XX; +[UNRECOGNIZED DRUG - CODE] XX
[2022-11-29 10:33] LABS: BASO % 0.2 % (0.0-1.0); EOS # 0.1 10^3/uL (0.0-0.5); EOS % 1.2 % (0.0-3.0); HEMATOCRIT 37.7 % (36.0-47.0); HEMOGLOBIN 11.8 g/dl (12.0-15.5); LYMPH # 1.3 10^3/uL (1.5-5.0); LYMPH % 30.1 % (24.0-44.0); MEAN CORPUSCULAR HEMOGLOBIN 28.5 pg (27.0-33.0); MEAN CORPUSCULAR HGB CONC 31.3 g/dl (32.0-36.5); MEAN CORPUSCULAR VOLUME 91.1 fl (80.0-96.0); MONO # 0.4 10^3/uL (0.0-0.8); MONO % 9.9 % (2.0-8.0); NEUTROPHILS # 2.4 10^3/uL (1.5-8.5); NEUTROPHILS % 58.4 % (36.0-66.0); PLATELET COUNT, AUTOMATED 236 10^3/uL (150-450); RED BLOOD COUNT 4.14 10^6/uL (4.00-5.40); WHITE BLOOD COUNT 4.2 10^3/uL (4.0-10.0)
[2022-11-29 10:54] LABS: ALBUMIN 3.7 G/DL (3.2-5.2)
[2022-11-29 11:02] LABS: PERCENT SATURATION 20.4 % (13.2-45.0)
[2022-11-29 11:03] LABS: FERRITIN 39.4 NG/ML (7.3-270.7)
[2022-11-29 11:08] LABS: HEMOGLOBIN A1c 6.2 % (4.0-6.0)
== END ==
LOC: M PLALAB 08:05
PROVIDERS: ATTEND Orthopaedic Surgery
DX: Z01.818 Encounter for other preprocedural examination (principal); Z47.1 Aftercare following joint replacement surgery; M25.569 Pain in unspecified knee

== ENCOUNTER 2023-01-15 17:14 | Emergency (ER) | payer MEDICARE ==
[~2023-01-15] VITALS: Ht 160 cm; Wt 72.7 kg
[~2023-01-15 17:14] MED LIST changes: -[UNRECOGNIZED DRUG - CODE] XX; -[UNRECOGNIZED DRUG - CODE] XX
[2023-01-15] MEDS ORDERED: [UNRECOGNIZED DRUG - CODE] XX (18:31)
[2023-01-15] MEDS ORDERED: [UNRECOGNIZED DRUG - CODE] XX (18:31)
[2023-01-15 18:41] VITALS: BP 123/54
== END 2023-01-15 18:42 | disposition home or self-care (01) ==
LOC: M ED 17:14
DX: Z48.89 Encounter for other specified surgical aftercare (principal); E11.9 Type 2 diabetes mellitus without complications; E78.5 Hyperlipidemia, unspecified; I10 Essential (primary) hypertension; Z96.653 Presence of artificial knee joint, bilateral; Z79.82 Long term (current) use of aspirin; Z79.84 Long term (current) use of oral hypoglycemic drugs; Z79.899 Other long term (current) drug therapy

== ENCOUNTER 2023-02-20 13:14 | Outpatient (RCR) | payer MEDICARE ==
[~2023-02-20 13:14] MED LIST changes: +[UNRECOGNIZED DRUG - CODE] XX; +[UNRECOGNIZED DRUG - CODE] XX
== END 2023-02-21 ==
LOC: M PT 13:14
PROVIDERS: ATTEND Orthopaedic Surgery
DX: Z47.89 Encounter for other orthopedic aftercare (principal); Z96.651 Presence of right artificial knee joint

== ENCOUNTER → 2023-02-25 | Outpatient (CLI) | payer MEDICARE | LOC: M WHC 15:26 | PROVIDERS: ATTEND Family Medicine | DX: Z12.31 Encounter for screening mammogram for malignant neoplasm of breast (principal) ==

== ENCOUNTER 2023-03-17 11:47 | Outpatient (RCR) | payer MEDICARE | END 2023-03-23 | LOC: M PT 11:47 | PROVIDERS: ATTEND Orthopaedic Surgery | DX: Z96.651 Presence of right artificial knee joint (principal) ==

== ENCOUNTER 2023-03-26 13:21 | Outpatient (RCR) | payer MEDICARE | END 2023-04-23 | LOC: M PT 13:21 | PROVIDERS: ATTEND Orthopaedic Surgery | DX: Z96.651 Presence of right artificial knee joint (principal) ==

== ENCOUNTER → 2023-06-18 | Outpatient (CLI) | payer MEDICARE ==
[2023-06-18 13:59] LABS: BLOOD UREA NITROGEN 13 MG/DL (9-23); CALCIUM LEVEL 8.8 MG/DL (8.3-10.6); CARBON DIOXIDE LEVEL 28 MMOL/L (20-31); CHLORIDE LEVEL 106 MMOL/L (98-107); CHOLESTEROL LEVEL 75 MG/DL (<200); CHOLESTEROL RISK RATIO 2.13 (<5); CREATININE FOR GFR 0.74 MG/DL (0.55-1.30); GLOMERULAR FILTRATION RATE > 60.0 (>39); GLUCOSE, FASTING 119 MG/DL (74-106); HDL CHOLESTEROL 35.1 MG/DL (>40); LDL CHOLESTEROL 27.3 MG/DL (<100); NON-HDL-C 39.9 MG/DL; SODIUM LEVEL 139 MMOL/L (136-145); TRIGLYCERIDES LEVEL 63 MG/DL (<150)
[2023-06-18 14:10] LABS: CREATININE, URINE 182.8 MG/DL
[2023-06-18 14:11] LABS: MAU/CREAT RATIO 21.3 MCG/MG (0.0-30.0)
[2023-06-18 14:18] LABS: HEMOGLOBIN A1c 6.9 % (4.0-6.0)
== END ==
LOC: M PLALAB 06-17 10:22
PROVIDERS: ATTEND Student in an Organized Health Care Education/Training Program
DX: E11.9 Type 2 diabetes mellitus without complications (principal); Z13.220 Encounter for screening for lipoid disorders

== ENCOUNTER → 2023-08-16 | Outpatient (CLI) | payer MEDICARE ==
[2023-08-16 09:04] LABS: APPEARANCE, URINE HAZY (CLEAR); BACTERIA, URINE AUTO 1+ (NEGATIVE); BILIRUBIN, URINE AUTO NEGATIVE (NEGATIVE); BLOOD, URINE BLOOD NEGATIVE (NEGATIVE); COLOR, URINE YELLOW (YELLOW); GLUCOSE, URINE (UA) AUTO NEGATIVE (NEGATIVE); KETONE, URINE AUTO NEGATIVE (NEGATIVE); LEUKOCYTE ESTERASE, URINE AUTO 1+ (NEGATIVE); MUCUS, URINE SMALL (NEGATIVE); NITRITE, URINE AUTO NEGATIVE (NEGATIVE); PROTEIN, URINE AUTO 1+ mg/dL (NEGATIVE); RBC, URINE AUTO 1 /HPF (0-3); SPECIFIC GRAVITY URINE AUTO 1.019 (1.002-1.035); SQUAMOUS EPITHELIAL CELL UR AU 3 /HPF (0-6); UROBILINOGEN, URINE AUTO 0.2 mg/dL (0.0-2.0); WBC, URINE AUTO 10 /HPF (0-3)
[2023-08-16 09:14] LABS: EOS # 0.1 10^3/uL (0.0-0.5); HEMATOCRIT 34.1 % (36.0-47.0); HEMOGLOBIN 10.9 g/dl (12.0-15.5); LYMPH % 28.6 % (24.0-44.0); MEAN CORPUSCULAR HEMOGLOBIN 27.5 pg (27.0-33.0); MEAN CORPUSCULAR VOLUME 86.1 fl (80.0-96.0); MONO # 0.4 10^3/uL (0.0-0.8); MONO % 11.1 % (2.0-8.0); NEUTROPHILS % 58.3 % (36.0-66.0); PLATELET COUNT, AUTOMATED 208 10^3/uL (150-450); RED BLOOD COUNT 3.96 10^6/uL (4.00-5.40); WHITE BLOOD COUNT 3.4 10^3/uL (4.0-10.0)
[2023-08-16 09:21] LABS: ERYTHROCYTE SEDIMENTATION RATE 73 mm/hr (0-30)
[2023-08-16 09:30] LABS: TOTAL PROTEIN,RANDOM URINE 36.3 MG/DL (0.0-14.0)
[2023-08-16 09:33] LABS: C REACTIVE PROTEIN QUANTITATIV < 0.40 MG/DL (<1.0)
[2023-08-16 09:34] LABS: CREATININE,RANDOM URINE 124.5 MG/DL
[2023-08-16 09:35] LABS: ALBUMIN 3.2 G/DL (3.2-5.2); ALKALINE PHOSPHATASE 158 U/L (46-116); ALT/SGPT 29 U/L (7.0-40); AST/SGOT 49 U/L (<34); BILIRUBIN,TOTAL 0.6 MG/DL (0.3-1.2); BLOOD UREA NITROGEN 16 MG/DL (9-23); CALCIUM LEVEL 8.9 MG/DL (8.3-10.6); CARBON DIOXIDE LEVEL 28 MMOL/L (20-31); CHLORIDE LEVEL 106 MMOL/L (98-107); CREATININE FOR GFR 0.79 MG/DL (0.55-1.30); GLOMERULAR FILTRATION RATE > 60.0 (>39); GLUCOSE, FASTING 122 MG/DL (74-106); POTASSIUM SERUM 4.3 MMOL/L (3.5-5.1); SODIUM LEVEL 139 MMOL/L (136-145); TOTAL PROTEIN 7.6 G/DL (5.7-8.2)
[2023-08-18 13:46] LABS: COMPLEMENT C3 135.3 MG/DL (90.0-170.0); COMPLEMENT C4 15.1 MG/DL (12-36)
== END ==
LOC: M LAB 08:13
PROVIDERS: ATTEND Internal Medicine Rheumatology
DX: M35.01 Sjogren syndrome with keratoconjunctivitis (principal)

== ENCOUNTER → 2023-10-30 | Outpatient (REF) | payer MEDICARE ==
[~2023-10-30] MED LIST changes: +ACET300T47; +LISI40TA4
== END ==
LOC: M LAB REF 12:42
PROVIDERS: ATTEND Student in an Organized Health Care Education/Training Program
DX: R30.0 Dysuria (principal)

== ENCOUNTER → 2024-02-05 | Outpatient (CLI) | payer MEDICARE, OTHER | LOC: M CARPUL 11:06 | PROVIDERS: ATTEND Student in an Organized Health Care Education/Training Program | DX: R01.1 Cardiac murmur, unspecified (principal) ==

== ENCOUNTER → 2024-03-11 | Outpatient (CLI) | payer MEDICARE | LOC: M WHC 15:16 | PROVIDERS: ATTEND Student in an Organized Health Care Education/Training Program | DX: Z12.31 Encounter for screening mammogram for malignant neoplasm of breast (principal) ==

== ENCOUNTER → 2024-04-05 | Outpatient (CLI) | payer MEDICARE ==
[2024-04-05 17:39] LABS: APPEARANCE, URINE CLEAR (CLEAR); BACTERIA, URINE AUTO NEGATIVE (NEGATIVE); BILIRUBIN, URINE AUTO NEGATIVE (NEGATIVE); BLOOD, URINE BLOOD NEGATIVE (NEGATIVE); COLOR, URINE YELLOW (YELLOW); GLUCOSE, URINE (UA) AUTO NEGATIVE (NEGATIVE); KETONE, URINE AUTO NEGATIVE (NEGATIVE); LEUKOCYTE ESTERASE, URINE AUTO 2+ (NEGATIVE); MUCUS, URINE SMALL (NEGATIVE); NITRITE, URINE AUTO NEGATIVE (NEGATIVE); PROTEIN, URINE AUTO NEGATIVE (NEGATIVE); RBC, URINE AUTO 1 /HPF (0-3); SPECIFIC GRAVITY URINE AUTO 1.021 (1.002-1.035); SQUAMOUS EPITHELIAL CELL UR AU 1 /HPF (0-6); UROBILINOGEN, URINE AUTO 0.2 mg/dL (0.0-2.0); WBC, URINE AUTO 5 /HPF (0-3)
[2024-04-05 17:44] LABS: BASO % 0.3 % (0.0-1.0); EOS # 0.1 10^3/uL (0.0-0.5); EOS % 2.4 % (0.0-3.0); HEMATOCRIT 35.6 % (36.0-47.0); HEMOGLOBIN 11.3 g/dl (12.0-15.5); LYMPH # 1.6 10^3/uL (1.5-5.0); LYMPH % 43.8 % (24.0-44.0); MEAN CORPUSCULAR HEMOGLOBIN 28.2 pg (27.0-33.0); MEAN CORPUSCULAR HGB CONC 31.7 g/dl (32.0-36.5); MEAN CORPUSCULAR VOLUME 88.8 fl (80.0-96.0); MONO # 0.4 10^3/uL (0.0-0.8); NEUTROPHILS # 1.5 10^3/uL (1.5-8.5); NEUTROPHILS % 41.2 % (36.0-66.0); PLATELET COUNT, AUTOMATED 183 10^3/uL (150-450); RED BLOOD COUNT 4.01 10^6/uL (4.00-5.40); WHITE BLOOD COUNT 3.7 10^3/uL (4.0-10.0)
[2024-04-05 17:53] LABS: ERYTHROCYTE SEDIMENTATION RATE 28 mm/hr (0-30)
[2024-04-05 18:00] LABS: C REACTIVE PROTEIN QUANTITATIV < 0.40 MG/DL (<1.0)
[2024-04-05 18:01] LABS: ALBUMIN 3.5 G/DL (3.2-5.2); ALKALINE PHOSPHATASE 180 U/L (46-116); ALT/SGPT 70 U/L (7.0-40); AST/SGOT 75 U/L (<34); BILIRUBIN,TOTAL 0.2 MG/DL (0.3-1.2); BLOOD UREA NITROGEN 23 MG/DL (9-23); CALCIUM LEVEL 9.2 MG/DL (8.3-10.6); CARBON DIOXIDE LEVEL 28 MMOL/L (20-31); CHLORIDE LEVEL 106 MMOL/L (98-107); COMPLEMENT C3 113.7 MG/DL (90.0-170.0); COMPLEMENT C4 10.1 MG/DL (12-36); CREATININE FOR GFR 0.82 MG/DL (0.55-1.30); CREATININE,RANDOM URINE 109.1 MG/DL; GLOMERULAR FILTRATION RATE > 60.0 (>39); GLUCOSE, FASTING 133 MG/DL (74-106); POTASSIUM SERUM 5.3 MMOL/L (3.5-5.1); SODIUM LEVEL 138 MMOL/L (136-145); TOTAL PROTEIN 7.6 G/DL (5.7-8.2)
== END ==
LOC: M PLALAB 14:30
PROVIDERS: ATTEND Internal Medicine Rheumatology
DX: M35.01 Sjogren syndrome with keratoconjunctivitis (principal); R76.8 Other specified abnormal immunological findings in serum; M15.9 Polyosteoarthritis, unspecified; Z72.0 Tobacco use; M15.4 Erosive (osteo)arthritis; R79.89 Other specified abnormal findings of blood chemistry

== ENCOUNTER → 2024-06-01 | Outpatient (CLI) | payer MEDICARE ==
[~2024-06-01] MED LIST changes: +ONDA-282 PO; -ONDA4TAB6 PO
[2024-06-01 10:52] LABS: BLOOD UREA NITROGEN 21 MG/DL (9-23); CALCIUM LEVEL 8.9 MG/DL (8.3-10.6); CARBON DIOXIDE LEVEL 28 MMOL/L (20-31); CHLORIDE LEVEL 104 MMOL/L (98-107); CHOLESTEROL LEVEL 142 MG/DL (<200); CHOLESTEROL RISK RATIO 3.12 (<5); CREATININE FOR GFR 0.75 MG/DL (0.55-1.30); GLOMERULAR FILTRATION RATE > 60.0 (>39); GLUCOSE, FASTING 153 MG/DL (74-106); HDL CHOLESTEROL 45.4 MG/DL (>40); NON-HDL-C 96.6 MG/DL; SODIUM LEVEL 138 MMOL/L (136-145); TRIGLYCERIDES LEVEL 123 MG/DL (<150)
[2024-06-01 12:11] LABS: HEMOGLOBIN A1c 5.9 % (4.0-6.0)
== END ==
LOC: M PLALAB 07:50
PROVIDERS: ATTEND Student in an Organized Health Care Education/Training Program
DX: E11.9 Type 2 diabetes mellitus without complications (principal)

== ENCOUNTER → 2024-07-14 | Outpatient (CLI) | payer MEDICARE ==
[2024-07-14 12:55] LABS: APPEARANCE, URINE HAZY (CLEAR); BACTERIA, URINE AUTO NEGATIVE (NEGATIVE); BILIRUBIN, URINE AUTO NEGATIVE (NEGATIVE); BLOOD, URINE BLOOD NEGATIVE (NEGATIVE); COLOR, URINE YELLOW (YELLOW); GLUCOSE, URINE (UA) AUTO NEGATIVE (NEGATIVE); KETONE, URINE AUTO NEGATIVE (NEGATIVE); LEUKOCYTE ESTERASE, URINE AUTO 1+ (NEGATIVE); MUCUS, URINE SMALL (NEGATIVE); NITRITE, URINE AUTO NEGATIVE (NEGATIVE); PROTEIN, URINE AUTO NEGATIVE (NEGATIVE); RBC, URINE AUTO 2 /HPF (0-3); SQUAMOUS EPITHELIAL CELL UR AU 3 /HPF (0-6); UROBILINOGEN, URINE AUTO 0.2 mg/dL (0.0-2.0); WBC, URINE AUTO 4 /HPF (0-3)
[2024-07-14 13:03] LABS: ALBUMIN 3.6 G/DL (3.2-5.2); ALKALINE PHOSPHATASE 159 U/L (46-116); ALT/SGPT 22 U/L (7.0-40); AST/SGOT 40 U/L (<34); BASO % 0.4 % (0.0-1.0); BILIRUBIN,TOTAL 0.6 MG/DL (0.3-1.2); BLOOD UREA NITROGEN 20 MG/DL (9-23); CALCIUM LEVEL 9.2 MG/DL (8.3-10.6); CARBON DIOXIDE LEVEL 27 MMOL/L (20-31); CHLORIDE LEVEL 105 MMOL/L (98-107); CREATININE FOR GFR 0.86 MG/DL (0.55-1.30); EOS # 0.2 10^3/uL (0.0-0.5); EOS % 4.2 % (0.0-3.0); GLOMERULAR FILTRATION RATE > 60.0 (>39); GLUCOSE, FASTING 132 MG/DL (74-106); HEMOGLOBIN 11.9 g/dl (12.0-15.5); LYMPH # 1.3 10^3/uL (1.5-5.0); LYMPH % 27.4 % (24.0-44.0); MEAN CORPUSCULAR HEMOGLOBIN 28.5 pg (27.0-33.0); MEAN CORPUSCULAR HGB CONC 31.3 g/dl (32.0-36.5); MEAN CORPUSCULAR VOLUME 91.1 fl (80.0-96.0); MONO # 0.6 10^3/uL (0.0-0.8); MONO % 11.9 % (2.0-8.0); NEUTROPHILS # 2.7 10^3/uL (1.5-8.5); NEUTROPHILS % 55.7 % (36.0-66.0); PLATELET COUNT, AUTOMATED 202 10^3/uL (150-450); POTASSIUM SERUM 4.7 MMOL/L (3.5-5.1); RED BLOOD COUNT 4.17 10^6/uL (4.00-5.40); SODIUM LEVEL 137 MMOL/L (136-145); TOTAL PROTEIN 8.6 G/DL (5.7-8.2); WHITE BLOOD COUNT 4.8 10^3/uL (4.0-10.0)
[2024-07-14 13:05] LABS: COMPLEMENT C3 146.3 MG/DL (90.0-170.0); COMPLEMENT C4 13.8 MG/DL (12-36)
[2024-07-14 13:12] LABS: ERYTHROCYTE SEDIMENTATION RATE 72 mm/hr (0-30)
== END ==
LOC: M PLALAB 11:18
PROVIDERS: ATTEND Internal Medicine Rheumatology
DX: R76.8 Other specified abnormal immunological findings in serum (principal)

== ENCOUNTER → 2024-07-28 | Outpatient (CLI) | payer MEDICARE | LOC: M RAD 13:12 | PROVIDERS: ATTEND Student in an Organized Health Care Education/Training Program | DX: Z12.2 Encounter for screening for malignant neoplasm of respiratory organs (principal); F17.210 Nicotine dependence, cigarettes, uncomplicated; J98.4 Other disorders of lung; I25.10 Atherosclerotic heart disease of native coronary artery without angina pectoris; K76.9 Liver disease, unspecified; K80.20 Calculus of gallbladder without cholecystitis without obstruction ==

== ENCOUNTER → 2024-08-30 | Outpatient (CLI) | payer MEDICARE ==
[2024-08-30 17:51] LABS: ALBUMIN 3.6 G/DL (3.2-5.2); BILIRUBIN,DIRECT 0.1 MG/DL (<0.4); BILIRUBIN,TOTAL 0.4 MG/DL (0.3-1.2); TOTAL PROTEIN 8.6 G/DL (5.7-8.2)
== END ==
LOC: M PLALAB 14:29
PROVIDERS: ATTEND Student in an Organized Health Care Education/Training Program
DX: R79.89 Other specified abnormal findings of blood chemistry (principal)

== ENCOUNTER → 2024-09-15 | Outpatient (REF) | payer MEDICARE, OTHER ==
[2024-09-15 18:00] LABS: APPEARANCE, URINE CLEAR (CLEAR); BACTERIA, URINE AUTO NEGATIVE (NEGATIVE); BILIRUBIN, URINE AUTO NEGATIVE (NEGATIVE); BLOOD, URINE BLOOD NEGATIVE (NEGATIVE); COLOR, URINE YELLOW (YELLOW); GLUCOSE, URINE (UA) AUTO NEGATIVE (NEGATIVE); KETONE, URINE AUTO NEGATIVE (NEGATIVE); LEUKOCYTE ESTERASE, URINE AUTO 1+ (NEGATIVE); NITRITE, URINE AUTO NEGATIVE (NEGATIVE); PROTEIN, URINE AUTO NEGATIVE (NEGATIVE); RBC, URINE AUTO 0 /HPF (0-3); SPECIFIC GRAVITY URINE AUTO 1.026 (1.002-1.035); SQUAMOUS EPITHELIAL CELL UR AU 1 /HPF (0-6); WBC, URINE AUTO 1 /HPF (0-3)
== END ==
LOC: M LAB REF 16:42
PROVIDERS: ATTEND Physician Assistant
DX: N39.0 Urinary tract infection, site not specified (principal)

== ENCOUNTER → 2024-09-30 | Outpatient (CLI) | payer MEDICARE ==
[2024-09-30 13:21] LABS: APPEARANCE, URINE CLEAR (CLEAR); BACTERIA, URINE AUTO NEGATIVE (NEGATIVE); BILIRUBIN, URINE AUTO NEGATIVE (NEGATIVE); BLOOD, URINE BLOOD NEGATIVE (NEGATIVE); COLOR, URINE YELLOW (YELLOW); GLUCOSE, URINE (UA) AUTO NEGATIVE (NEGATIVE); KETONE, URINE AUTO NEGATIVE (NEGATIVE); LEUKOCYTE ESTERASE, URINE AUTO TRACE (NEGATIVE); NITRITE, URINE AUTO NEGATIVE (NEGATIVE); PROTEIN, URINE AUTO NEGATIVE (NEGATIVE); RBC, URINE AUTO 1 /HPF (0-3); SPECIFIC GRAVITY URINE AUTO 1.018 (1.002-1.035); SQUAMOUS EPITHELIAL CELL UR AU 1 /HPF (0-6); UROBILINOGEN, URINE AUTO 0.2 mg/dL (0.0-2.0); WBC, URINE AUTO 1 /HPF (0-3)
[2024-09-30 13:30] LABS: BASO % 0.3 % (0.0-1.0); EOS # 0.1 10^3/uL (0.0-0.5); EOS % 3.1 % (0.0-3.0); HEMATOCRIT 35.7 % (36.0-47.0); HEMOGLOBIN 11.1 g/dl (12.0-15.5); LYMPH # 1.2 10^3/uL (1.5-5.0); LYMPH % 36.1 % (24.0-44.0); MEAN CORPUSCULAR HGB CONC 31.1 g/dl (32.0-36.5); MEAN CORPUSCULAR VOLUME 89.9 fl (80.0-96.0); MONO # 0.4 10^3/uL (0.0-0.8); MONO % 12.3 % (2.0-8.0); NEUTROPHILS # 1.6 10^3/uL (1.5-8.5); NEUTROPHILS % 47.9 % (36.0-66.0); PLATELET COUNT, AUTOMATED 198 10^3/uL (150-450); RED BLOOD COUNT 3.97 10^6/uL (4.00-5.40); WHITE BLOOD COUNT 3.2 10^3/uL (4.0-10.0)
[2024-09-30 13:41] LABS: ERYTHROCYTE SEDIMENTATION RATE 59 mm/hr (0-30)
[2024-09-30 13:55] LABS: TOTAL PROTEIN,RANDOM URINE 23.4 MG/DL (0.0-14.0)
[2024-09-30 13:59] LABS: C REACTIVE PROTEIN QUANTITATIV < 0.40 MG/DL (<1.0)
[2024-09-30 14:00] LABS: ALBUMIN 3.3 G/DL (3.2-5.2); ALKALINE PHOSPHATASE 142 U/L (35-104); ALT/SGPT 21 U/L (7.0-40); AST/SGOT 33 U/L (<34); BILIRUBIN,TOTAL 0.3 MG/DL (0.3-1.2); BLOOD UREA NITROGEN 21 MG/DL (9-23); CALCIUM LEVEL 9.4 MG/DL (8.3-10.6); CARBON DIOXIDE LEVEL 26 MMOL/L (20-31); CHLORIDE LEVEL 105 MMOL/L (98-107); CREATININE FOR GFR 0.73 MG/DL (0.55-1.30); GLOMERULAR FILTRATION RATE > 60.0 (>39); GLUCOSE, FASTING 149 MG/DL (74-106); POTASSIUM SERUM 4.9 MMOL/L (3.5-5.1); SODIUM LEVEL 140 MMOL/L (136-145); TOTAL PROTEIN 8.1 G/DL (5.7-8.2)
[2024-09-30 14:02] LABS: COMPLEMENT C4 12.5 MG/DL (12-36)
== END ==
LOC: M PLALAB 11:12
PROVIDERS: ATTEND Internal Medicine Rheumatology
DX: M35.01 Sjogren syndrome with keratoconjunctivitis (principal); R76.8 Other specified abnormal immunological findings in serum; M15.9 Polyosteoarthritis, unspecified; Z72.0 Tobacco use; M15.4 Erosive (osteo)arthritis; R79.89 Other specified abnormal findings of blood chemistry

== ENCOUNTER → 2025-01-27 | Outpatient (CLI) | payer MEDICARE ==
[2025-01-27 17:46] LABS: CHOLESTEROL RISK RATIO 2.39 (<5); HDL CHOLESTEROL 44.3 MG/DL (>40); LDL CHOLESTEROL 33.3 MG/DL (<100); NON-HDL-C 61.7 MG/DL
[2025-01-27 18:07] LABS: CREATININE, URINE 140.8 MG/DL; MAU/CREAT RATIO 30.5 MCG/MG (0.0-30.0)
== END ==
LOC: M PLALAB 14:21
DX: E11.9 Type 2 diabetes mellitus without complications (principal)

== ENCOUNTER → 2025-03-11 | Outpatient (CLI) | payer MEDICARE | LOC: M SOG 07:47 | PROVIDERS: ATTEND Physician Assistant | DX: M79.644 Pain in right finger(s) (principal) ==

== ENCOUNTER → 2025-03-14 | Outpatient (CLI) | payer MEDICARE | LOC: M WHC 13:16 | PROVIDERS: ATTEND Family Medicine | DX: Z12.31 Encounter for screening mammogram for malignant neoplasm of breast (principal) ==

== ENCOUNTER → 2025-03-14 | Outpatient (CLI) | payer MEDICARE | LOC: M WHC 13:17 | DX: M85.851 Other specified disorders of bone density and structure, right thigh (principal); M85.852 Other specified disorders of bone density and structure, left thigh ==

== ENCOUNTER 2025-04-01 07:49 | Day surgery (SDC) | payer MEDICARE ==
[~2025-04-01] VITALS: Ht 160 cm; Wt 72.5 kg
[~2025-04-01 07:49] MED LIST changes: -ACET300T47; +ACET300T47 PO; +LISI40TA4 PO; +PRES10CA2 PO; +UNRESOLVED CLARIFICATION ENTRY XX SCH
[2025-04-01] MEDS ORDERED: LIDOCAINE W/EPINEPHRINE 1% 20ML VIAL XX ONE (08:25)
[2025-04-01] MEDS ORDERED: LIDOCAINE 1% MDV 20ML VIAL As Ordered ONE (08:27)
[2025-04-01] MEDS: LIDOCAINE 1% MDV 20ML VIAL XX ONE (08:30)
[2025-04-01] MEDS: SODIUM BICARBONATE 8.4% INJ 50MEQ/50ML VIAL XX ONE (08:30)
[2025-04-01] MEDS ORDERED: BACITRACIN OINTMENT 30GM TUBE As Ordered ONE (09:26)
[2025-04-01 10:23] VITALS: BP 158/86; TEMP 97.7; O2SAT 100
== END 2025-04-01 10:47 | disposition home or self-care (01) ==
LOC: M SDC 07:49
PROVIDERS: ATTEND Orthopaedic Surgery Hand Surgery
DX: M06.341 Rheumatoid nodule, right hand (principal)

== ENCOUNTER → 2025-04-05 | Outpatient (CLI) | payer MEDICARE ==
[~2025-04-05] MED LIST changes: +PROHANCE 279.3MG/ML 15ML VIAL ONE; -UNRESOLVED CLARIFICATION ENTRY XX SCH
== END ==
LOC: M PLAIMG 09:20
PROVIDERS: ATTEND Podiatrist Foot & Ankle Surgery
DX: M67.471 Ganglion, right ankle and foot (principal)
CPT/HCPCS: 73720; A9576

== ENCOUNTER → 2025-06-27 | Outpatient (CLI) | payer MEDICARE ==
[~2025-06-27] MED LIST changes: +LISI40TA10; +LISI40TA10 PO; -LISI40TA4; -LISI40TA4 PO; -PROHANCE 279.3MG/ML 15ML VIAL ONE
[2025-06-27 09:17] LABS: PLATELET COUNT, AUTOMATED 166 10^3/uL (150-450)
[2025-06-27 09:39] LABS: CREATININE, URINE 50.0 MG/DL; MALB URINE SIEMENS < 3.0 MG/L
[2025-06-27 09:53] LABS: ESTIMATED AVERAGE GLUCOSE 137.0 MG/DL (60-110)
[2025-06-27 10:07] LABS: ALT/SGPT 24.0 U/L (7.0-40); AST/SGOT 53.0 U/L (<34); CALCIUM LEVEL 9.0 MG/DL (8.3-10.6); CARBON DIOXIDE LEVEL 26.0 MMOL/L (20-31); CHLORIDE LEVEL 107.0 MMOL/L (98-107); CREATININE FOR GFR 1.03 MG/DL (0.55-1.30); GLOMERULAR FILTRATION RATE 57.4 (>39); POTASSIUM SERUM 4.6 MMOL/L (3.5-5.1); SODIUM LEVEL 142.0 MMOL/L (136-145)
== END ==
LOC: M LAB 08:07
PROVIDERS: ATTEND Family Medicine
DX: E11.29 Type 2 diabetes mellitus with other diabetic kidney complication (principal); R80.9 Proteinuria, unspecified; M67.471 Ganglion, right ankle and foot

== ENCOUNTER 2025-07-06 09:26 | Day surgery (SDC) | payer MEDICARE ==
[~2025-07-06] VITALS: Ht 160 cm; Wt 71.6 kg
[2025-07-06] MEDS ORDERED: LR 1,000 ML IV SCH (10:05)
[2025-07-06] MEDS ORDERED: ONDANSETRON 4MG 2ML VIAL As Ordered ONE (10:18)
[2025-07-06] MEDS ORDERED: ACETAMINOPHEN 1000MG/100ML IV BAG As Ordered ONE (10:18)
[2025-07-06] MEDS ORDERED: LIDOCAINE 2% 100 MG/5 ML SDV (FOR ANES.) As Ordered ONE (10:18)
[2025-07-06] MEDS ORDERED: MIDAZOLAM INJ 2 MG/2 ML VIAL As Ordered ONE (10:18)
[2025-07-06] MEDS: ceFAZolin SOD 2 GM IV ONCE IV ONE (11:30)
[2025-07-06] MEDS: LIDOCAINE 1% SDV 30 ML VIAL As Ordered ONE (11:33)
[2025-07-06] MEDS ORDERED: KETOROLAC 30 MG/ML 1 ML VIAL As Ordered ONE (11:41)
[2025-07-06 12:59] VITALS: BP 133/63; TEMP 97.3; O2SAT 100
== END 2025-07-06 13:05 | disposition home or self-care (01) ==
LOC: M SDC 09:26
PROVIDERS: ATTEND Podiatrist Foot & Ankle Surgery
DX: M67.471 Ganglion, right ankle and foot (principal)
CPT/HCPCS: 28090; 88304; J0131; J0665; J0690; J1885; J2250; J2405; J3010

== ENCOUNTER → 2025-10-07 | Outpatient (CLI) | payer MEDICARE ==
[2025-10-07 18:30] LABS: BASO # 0.0 10^3/uL (0.0-0.2); BASO % 0.2 % (0.0-1.0); EOS # 0.0 10^3/uL (0.0-0.5); EOS % 0.8 % (0.0-3.0); LYMPH # 1.2 10^3/uL (1.5-5.0); LYMPH % 25.4 % (24.0-44.0); MONO # 0.4 10^3/uL (0.0-0.8); MONO % 8.9 % (2.0-8.0); NEUTROPHILS # 3.0 10^3/uL (1.5-8.5); NEUTROPHILS % 64.5 % (36.0-66.0); PLATELET COUNT, AUTOMATED 239 10^3/uL (150-450)
[2025-10-07 18:53] LABS: ALT/SGPT 23 U/L (7.0-40); AST/SGOT 44 U/L (<34); C REACTIVE PROTEIN QUANTITATIV < 0.50 MG/DL (<1.0); CALCIUM LEVEL 9.0 MG/DL (8.3-10.6); CARBON DIOXIDE LEVEL 27 MMOL/L (20-31); CHLORIDE LEVEL 101 MMOL/L (98-107); COMPLEMENT C4 13.7 MG/DL (12-36); CREATININE FOR GFR 0.87 MG/DL (0.55-1.30); GLOMERULAR FILTRATION RATE 70.3 (>39); POTASSIUM SERUM 4.4 MMOL/L (3.5-5.1); SODIUM LEVEL 137 MMOL/L (136-145)
== END ==
LOC: M PLALAB 14:04
PROVIDERS: ATTEND Internal Medicine Rheumatology
DX: M35.01 Sjogren syndrome with keratoconjunctivitis (principal)

== ENCOUNTER → 2025-10-10 | Outpatient (REF) | payer MEDICARE ==
[2025-10-10 16:02] LABS: APPEARANCE, URINE HAZY (CLEAR); BACTERIA, URINE AUTO NEGATIVE (NEGATIVE); BILIRUBIN, URINE AUTO NEGATIVE (NEGATIVE); BLOOD, URINE BLOOD NEGATIVE (NEGATIVE); GLUCOSE, URINE (UA) AUTO NEGATIVE (NEGATIVE); KETONE, URINE AUTO NEGATIVE (NEGATIVE); LEUKOCYTE ESTERASE, URINE AUTO 1+ (NEGATIVE); NITRITE, URINE AUTO NEGATIVE (NEGATIVE); PROTEIN, URINE AUTO NEGATIVE (NEGATIVE); RBC, URINE AUTO 1 /HPF (0-3); SPECIFIC GRAVITY URINE AUTO 1.008 (1.002-1.035); SQUAMOUS EPITHELIAL CELL UR AU 1 /HPF (0-6); UROBILINOGEN, URINE AUTO 0.2 mg/dL (0.0-2.0); WBC, URINE AUTO 3 /HPF (0-3)
[2025-10-10 16:30] LABS: TOTAL PROTEIN,RANDOM URINE 18.2 MG/DL (0.0-14.0)
== END ==
LOC: M SFHCRHEU 14:29
PROVIDERS: ATTEND Internal Medicine Rheumatology
DX: M35.01 Sjogren syndrome with keratoconjunctivitis (principal)